=== PATIENT | female | born 2000 | race Caucasian/White ===

== ENCOUNTER 2019-05-11 13:28 | Inpatient (IN) | payer BC ==
[2019-05-11] MEDS ORDERED: Ondansetron 4 MG/2 ML SDV IVPUSH ONE (13:33)
[2019-05-11] MEDS ORDERED: Famotidine 20 MG/2 ML SDV IVPUSH ONE (13:33)
[2019-05-11] MEDS ORDERED: Lactated Ringers 1,000 ML IV ONE (13:33)
[2019-05-11] MEDS ORDERED: Pantoprazole 40 MG Vial IVPUSH ONE (13:33)
--- NOTE | 2019-05-11 13:33 | EDM.PDOC ---
ED HPI GENERAL MEDICAL PROBLEM - General Chief Complaint: Abdominal Pain Stated Complaint: LUQ PAIN Time Seen by Provider: 05/11/19 13:30 Source of Information: Reports: Patient, Significant Other. Denies: Old Records (No [facility] records available) History Limitations: Reports: No Limitations - History of Present Illness INITIAL COMMENTS - FREE TEXT/NARRATIVE: The patient was brought to the emergency room via private automobile by her significant other for evaluation of 9/10 mostly left upper quadrant abdominal pain associated with some nausea today with symptoms starting about 2 days ago. She has not taken any medications for her symptoms to this point. Patient did have a normal bowel movement earlier this morning. Note that the patient did recently have a normal EGD as below, however borderline positive HIDA for a dysfunctional gallbladder with no surgery recommended to this point. She has had some possible fatty food intolerance including patient eating some cheese a couple of days ago. No recent history of other abdominal pain, heartburn, emesis , diarrhea, melena, gross hematochezia, etc.. She denies any gross hematuria, colic, or other UTI symptoms. The patient also denies any recent fever, cough, wheezing, dyspnea, etc.. Onset: Gradual Onset Date: 05/09/19 Onset Time: 22:00 Duration: Day(s): (As above), Getting Worse, Intermittent Location: Reports: Abdomen. Denies: Head, Face, Chest, Back, Pelvis, Upper Extremity, Left, Upper Extremity, Right, Radiates to Quality: Reports: Same as Previous Episode, Sharp Severity: Severe Improves with: Reports: None Worsens with: Reports: None Context: Reports: Other (As above). Denies: Sick Contact, Trauma Associated Symptoms: Reports: Nausea/Vomiting (No emesis). 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 Denies: Allergic Rhinitis, Cataract, Glaucoma, Hard of Hearing, Macular Degeneration, Otitis Media, Retinal Detachment, Sinusitis Other HEENT History: Patient wears glasses. Cardiovascular History: Reports: None, Other (See Below). Denies: Afib, Aneurysm, Arrhythmia, Blood Clots/VTE/DVT, CAD, Heart Murmur, High Cholesterol, Hypertension, Syncope Other Cardiovascular History: Patient does now know her cholesterol status. Respiratory History: Reports: Asthma, Other (See Below). Denies: Bronchitis, Recurrent, COPD, Intubation, Difficult, Intubation, Previous, PE, Pneumonia, Recurrent, Pneumothorax, Sleep Apnea, TB Other Respiratory History: Childhood asthma currently nonproblematic. Gastrointestinal History: Reports: Chronic Diarrhea, Gastritis, GERD, Hiatal Hernia, Other (See Below). Denies: Celiac Disease, Cholelithiasis, Chronic Constipation, Fecal Incontinence, GI Bleed, Hepatitis, Inflammatory Bowel Disease, Irritable Bowel Syndrome, Jaundice, Pancreatitis Other Gastrointestinal History: Small hiatal hernia. Dysfunctional gallbladder by HIDA scan in February 2019 with no known cholelithiasis. Chronic nonspecific abdominal pain since age 8 with possible stress gastritis versus irritable bowel syndrome with chronic diarrhea. 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 Musculoskeletal History: Reports: Arthritis, Back Pain, Chronic, Fracture, Other (See Below). Denies: Amputation, Gout, Neck Pain, Chronic, Osteoarthritis , Osteoporosis, RA, SLE Other Musculoskeletal History: Tibial fibular fracture in infancyside unknown. Neurological History: Reports: Headaches, Chronic, Migraines. Denies: Cerebral Aneurysms, Concussion, Head Trauma, MS, Neuropathy, Peripheral, Parkinson's, Seizure, TIA, Vertigo Psychiatric History: Reports: Addiction, Anxiety, Depression, Psych Hospitalization(s), Suicidal Ideation, Other (See Below). Denies: Abuse, Victim of, ADD, ADHD, PTSD, Suicide Attempt Other Psychiatric History: History of illicit drug use, including methamphetamines between ages 11 and 14, which did require inpatient treatment at age 14 with additional anxiety and depression disorder and suicidal ideation with inpatient treatment as above. Marijuana use between ages 11 and 16. No previous IV drug use. Endocrine/Metabolic History: Reports: None. Denies: Diabetes, Type I, Diabetes , Type II, Diabetes Mellitus, Type 3c, Hypothyroidism, IDDM Hematologic History: Reports: None. Denies: Anemia, Blood Transfusion(s), Iron Deficiency Immunologic History: Reports: None. Denies: AIDS, HIV, SLE Oncologic (Cancer) History: Reports: None. Denies: Basal Cell Carcinoma, Cervix , Hodgkin's Lymphoma, Leukemia, Malignant Melanoma, Non-Hodgkin's Lymphoma, Ovarian, Squamous Cell Carcinoma, Uterine Dermatologic History: Reports: None. Denies: Eczema, Psoriasis - Infectious Disease History Infectious Disease History: Reports: None. Denies: C-Difficile, Chicken Pox, Influenza, Measles, Meningitis, Mononucleosis, MRSA, Multidrug-Resistant Pseudomonas (MDRP), Multidrug-Resistant Gram-Negative, Other, Mumps, Pertussis ( Whooping Cough), Rubella, Scarlet Fever, Shingles, TB, VRE - Past Surgical History Head Surgeries/Procedures: Reports: None HEENT Surgical History: Reports: None. Denies: Adenoidectomy, Eye Surgery, Laser Surgery, LASIK, Myringotomy w Tube(s), Naso-Sinus Surgery, Oral Surgery, Tonsillectomy Cardiovascular Surgical History: Reports: None. Denies: Varicose Respiratory Surgical History: Reports: None. Denies: Thoracentesis GI Surgical History: Reports: EGD, Other (See Below). Denies: Cholecystectomy, Colonoscopy, Hernia, Abdominal, Hernia, Inguinal, Hernia Repair/Other Other GI Surgeries/Procedures: EGD on 01/22/19. Female Surgical History: Reports: None. Denies: Tubal Ligation Endocrine Surgical History: Reports: None Neurological Surgical History: Reports: None. Denies: C-Spine, Discectomy, Laminectomy, Lumbar Spine, Sacral Spine, Spinal Fusion, Thoracic Spine, Vertebroplasty Musculoskeletal Surgical History: Reports: None. Denies: Arthroscopic Procedure , Carpal Tunnel, Ganglion Cyst, Joint Replacement, ORIF, Shoulder Surgery Oncologic Surgical History: Reports: None Dermatological Surgical History: Reports: None - Past Imaging History Past Imaging History: Reports: HIDA Scan (Borderline positive for dysfunctional gallbladder and February 2019 by patient history.) Social & Family History - Family History HEENT: Reports: None. Denies: Cataract, Glaucoma, Macular Degeneration, Retinal Detachment Cardiac: Reports: None. Denies: Afib, Aneurysm, Arrhythmia, Blood Clots/VTE/DVT , CAD, Heart Failure, High Cholesterol, Hypertension, NM, PVD/COD, Syncope Respiratory: Reports: None. Denies: Asthma, COPD, PE, Pneumothorax, Sleep Apnea GI: Reports: None. Denies: Celiac Disease, Cholelithiasis, Colon Polyps, GI bleed, Inflammatory Bowel Disease, Irritable Bowel Syndrome, Pancreatitis, PUD : Reports: None. Denies: Renal Calculus, Renal Disease/Insufficiency OBGYN: Reports: None. Denies: Endometriosis, Fibroids, Recurrent Spontaneous Musculoskeletal: Reports: None. Denies: Arthritis, Gout, RA, SLE Neurological: Reports: None. Denies: Alzheimers Disease, Cerebral Aneurysms, CVA, Dementia, Migraines, MS, Parkinson's, Seizure, TIA Psychiatric: Reports: Anxiety, Depression, Other (See Below). Denies: Abuse, Victim of, ADD, ADHD, Psych Hospitalization(s), PTSD, Suicide Attempt Other Psychiatric Family History: Anxiety depression disorder in parents and maternal/paternal grandparents with maternal grandfather dying in his 60s secondary to alcohol abuse. Endocrine/Metabolic: Reports: None. Denies: Diabetes, Gestational, Diabetes, Type I, Diabetes, type II, Diabetes Mellitus, Type 3c, Hypothyroidism Hematologic: Reports: None. Denies: Anemia Immunologic: Reports: None. Denies: AIDS, HIV, SLE Dermatologic: Denies: Eczema, Psoriasis Oncologic: Reports: None. Denies: Breast, Cervix, Colon, Hodgkin's Lymphoma, Leukemia, Lung, Lymphoma, Non-Hodgkin's Lymphoma, Ovarian, Skin, Uterine - Tobacco Use Smoking Status *Q: Current Every Day Smoker Tobacco Use Within Last Twelve Months: Cigarettes Years of Tobacco use: 8 Packs/Tins Daily: 0.5 Packs/Tins Daily Comment: Started smoking at age 10. Maximum use one pack per day. Used Tobacco, but Quit: No Smoking Cessation Information Provided To Patient: Yes Second Hand Smoke Exposure: Yes Source of Second Hand Smoke Exposure: Significant other Second Hand Smoke Education Provided: Yes - Caffeine Use Caffeine Use: Reports: Energy Drinks (One can per month), Soda (2 sodas per week ). Denies: Coffee, Tea - Alcohol Use Alcohol Use History: Yes Days Per Week of Alcohol Use: 3 Number of Drinks Per Day: 4 Number of Drinks Per Day Comment: Usually wine or mixed drinks. No previous DWIs , problems with alcohol abuse, etc. Total Drinks Per Week: 12 Alcohol Use in Last Twelve Months: No - Recreational Drug Use Recreational Drug Type: Reports: Amphetamines (Speed) (As above), Marijuana/ Hashish (As above), Methamphetamine (As above). 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 ED EXAM, GI/ABD - Physical Exam Exam: See Below Exam Limited By: No Limitations General Appearance: Alert, WD/WN, Mild Distress (Secondary to pain) Eyes: Bilateral: Normal Appearance (No nystagmus. Patient wearing glasses), EOMI (PERRLA) Ears: Normal External Exam, Normal Canal, Hearing Grossly Normal, Normal TMs Nose: Normal Inspection, Normal Mucosa, No Blood Throat/Mouth: Normal Inspection, Normal Lips, Normal Teeth, Normal Gums, Normal Oropharynx, Normal Voice, No Airway Compromise. No: Dysphagia, Perioral Cyanosis Head: Atraumatic, Normocephalic. No: Facial Swelling, Facial Tenderness, Sinus Tenderness Neck: Normal Inspection, Supple, Non-Tender, Full Range of Motion. No: Lymphadenopathy (L), Lymphadenopathy (R), Thyromegaly Respiratory/Chest: No Respiratory Distress, Lungs Clear, Normal Breath Sounds, No Accessory Muscle Use, Chest Non-Tender. No: Pleural Rub, Retractions Cardiovascular: Normal Peripheral Pulses, Regular Rate, Rhythm, No Edema, No Gallop, No JVD, No Murmur, No Rub. No: Gallop/S3, Gallop/S4, Friction Rub GI/Abdominal Exam: Normal Bowel Sounds, No Organomegaly, No Distention, No Abnormal Bruit, No Mass, Pelvis Stable, Tender (Moderate left upper quadrant palpation pain). No: Guarding, Rigid, Rebound, Hernia (Female) Exam: Deferred Rectal (Female) Exam: Deferred Back Exam: Normal Inspection, Full Range of Motion. No: CVA Tenderness (L), CVA Tenderness (R), Muscle Spasm Extremities: Normal Inspection, Normal Range of Motion, Non-Tender, No Pedal Edema, Normal Capillary Refill. No: Katelyn's Sign Neurological: Alert, Oriented, CN II-XII Intact, Normal Cognition, Normal Gait, No Motor/Sensory Deficits Psychiatric: Normal Affect, Normal Mood, Tearful (Secondary to pain) Skin Exam: Warm, Dry, Intact, Normal Color, No Rash, Tattoo(s). No: Diaphoretic , Ecchymosis, Jaundice, Pallor, Petechiae, Wound/Incision Lymphatic: No Adenopathy Course - Vital Signs Last Recorded V/S: Last Vital Signs Temp 36.2 C 05/11/19 13:29 Pulse 71 05/11/19 16:48 Resp 18 05/11/19 16:17 BP 117/78 05/11/19 16:48 Pulse Ox 98 05/11/19 16:17 Vital Signs - 24 hr 05/11/19 05/11/19 05/11/19 13:29 13:44 13:59 Temperature [ 36.2 C Temporal] Pulse, 101 H 100 Peripheral [ Pulse Oximetry] Respiratory 20 19 17 Rate Blood Pressure 140/93 H 121/86 121/87 [Left Upper Arm ] O2 Sat by Pulse 100 100 100 Oximetry 05/11/19 05/11/19 05/11/19 14:15 14:43 14:44 Temperature [ Temporal] Pulse, 72 86 71 Peripheral [ Pulse Oximetry] Respiratory 16 17 18 Rate Blood Pressure 94/62 123/76 125/73 [Left Upper Arm ] O2 Sat by Pulse 99 99 99 Oximetry 05/11/19 05/11/19 05/11/19 14:59 15:14 15:29 Temperature [ Temporal] Pulse, 61 75 Peripheral [ Pulse Oximetry] Respiratory 16 16 16 Rate Blood Pressure 135/82 113/82 118/74 [Left Upper Arm ] O2 Sat by Pulse 99 99 99 Oximetry 05/11/19 05/11/19 05/11/19 15:57 16:00 16:17 Temperature [ Temporal] Pulse, 89 71 Peripheral [ Pulse Oximetry] Respiratory 16 17 18 Rate Blood Pressure 121/68 122/74 124/93 H [Left Upper Arm ] O2 Sat by Pulse 99 99 98 Oximetry 05/11/19 05/11/19 05/11/19 16:29 16:48 16:59 Temperature [ Temporal] Pulse, 74 71 71 Peripheral [ Pulse Oximetry] Respiratory Rate Blood Pressure 114/79 117/78 128/69 [Left Upper Arm ] O2 Sat by Pulse 98 Oximetry 05/11/19 05/11/19 17:14 17:29 Temperature [ 36.9 C Temporal] Pulse, 80 92 Peripheral [ Pulse Oximetry] Respiratory Rate Blood Pressure 123/81 133/87 [Left Upper Arm ] O2 Sat by Pulse 99 98 Oximetry - Orders/Labs/Meds Orders: Active Orders 24 hr Category Date Time Status Peripheral IV Care [RC] . DIRECTED Care 05/11/19 13:33 Active Nothing Per Oral Diet [DIET] Diet 05/11/19 Breakfast Active Abdomen Pelvis w Cont [CT] Stat Exams 05/11/19 16:05 Taken Abdomen Series w Chest 1V [CR] Stat Exams 05/11/19 13:33 Taken CULTURE URINE [RM] Routine Lab 05/11/19 16:41 Ordered Sodium Chloride 0.9% [Saline Flush] Med 05/11/19 13:33 Active 10 ml FLUSH ASDIRECTED PRN Obtain Past Medical Record [OM.PC] Urgent Oth 05/11/19 13:33 Active Peripheral IV Insertion Adult [OM.PC] Stat Oth 05/11/19 13:33 Ordered Resuscitation Status Stat Resus Stat 05/11/19 13:33 Ordered Medication Orders Sodium Chloride (Saline Flush) 10 ml FLUSH ASDIRECTED PRN PRN Reason: Keep Vein Open Last Admin: 05/11/19 17:11 Dose: 10 ml Admin: 05/11/19 16:10 Dose: 10 ml Admin: 05/11/19 14:02 Dose: 10 ml Labs: Laboratory Tests 05/11/19 05/11/19 05/11/19 Range/Units 13:45 13:45 13:45 WBC 13.0 H (4.0-10.2) K/uL RBC 4.80 (3.77-5.09) M/uL Hgb 14.8 (11.7-15.5) g/dL Hct 42.6 (34.0-46.0) % MCV 88.8 (84.0-98.0) fL MCH 30.8 (28.2-33.3) pg MCHC 34.7 (31.7-36.0) g/dL RDW 12.9 (11.2-14.1) % Plt Count 354 H (150-350) K/uL Neut % (Auto) 63.7 (45.0-80.0) % Lymph % (Auto) 26.1 (10.0-50.0) % Dixie % (Auto) 8.2 (2.0-14.0) % Eos % (Auto) 1.8 (0.0-5.0) % Baso % (Auto) 0.2 (0.0-2.0) % Neut # (Auto) 8.28 H (1.40-7.00) K/uL Lymph # (Auto) 3.40 (0.50-3.50) K/uL Dixie # (Auto) 1.07 H (0.00-1.00) K/uL Eos # (Auto) 0.24 (0.00-0.50) K/uL Baso # (Auto) 0.03 (0.00-0.20) K/uL PT 10.2 (9.5-12.0) SEC INR 0.9 APTT 28.7 (21.0-31.3) SEC Sodium 139 (136-145) mmol/L Potassium 3.8 (3.5-5.1) mmol/L Chloride 102 (98-107) mmol/L Carbon Dioxide 24.1 (21.0-32.0) mmol/L BUN 12 (7-18) mg/dL Creatinine 0.83 (0.51-1.17) mg/dL Est Cr Clr Drug Dosing TNP Estimated GFR (MDRD) > 60 mL/min Glucose 86 (74-106) mg/dL Lactic Acid (0.4-2.0) mmol/L Uric Acid 4.8 (2.6-7.2) mg/dL Calcium 9.8 (8.5-10.1) mg/dL Magnesium 1.9 (1.8-2.4) mg/dL Total Bilirubin 0.5 (0.2-1.0) mg/dL AST 23 (15-37) U/L ALT 36 (12-78) U/L Alkaline Phosphatase 62 (46-116) IU/L Total Protein 8.5 H (6.4-8.2) g/dL Albumin 4.2 (3.4-5.0) g/dL Amylase 58 (25-115) U/L Lipase 72 L (73-393) U/L HCG, Qual (NEGATIVE) Specimen Type Urine Color Urine Appearance Urine pH (5.0-9.0) Ur Specific [place] (1.005-1.030) Urine Protein (NEGATIVE) mg/dL Urine Glucose (UA) (NEGATIVE) mg/dL Urine Ketones (NEGATIVE) mg/dL Urine Occult Blood (NEGATIVE) Urine Nitrite (NEGATIVE) Urine Bilirubin (NEGATIVE) Urine Urobilinogen (0.2-1.0) E.U./dL Ur Leukocyte Esterase (NEGATIVE) Urine RBC /HPF Urine WBC /HPF Ur Epithelial Cells /LPF Urine Mucus (NEGATIVE) /LPF 05/11/19 05/11/19 05/11/19 Range/Units 13:45 13:45 16:41 WBC (4.0-10.2) K/uL RBC (3.77-5.09) M/uL Hgb (11.7-15.5) g/dL Hct (34.0-46.0) % MCV (84.0-98.0) fL MCH (28.2-33.3) pg MCHC (31.7-36.0) g/dL RDW (11.2-14.1) % Plt Count (150-350) K/uL Neut % (Auto) (45.0-80.0) % Lymph % (Auto) (10.0-50.0) % Dixie % (Auto) (2.0-14.0) % Eos % (Auto) (0.0-5.0) % Baso % (Auto) (0.0-2.0) % Neut # (Auto) (1.40-7.00) K/uL Lymph # (Auto) (0.50-3.50) K/uL Dixie # (Auto) (0.00-1.00) K/uL Eos # (Auto) (0.00-0.50) K/uL Baso # (Auto) (0.00-0.20) K/uL PT (9.5-12.0) SEC INR APTT (21.0-31.3) SEC Sodium (136-145) mmol/L Potassium (3.5-5.1) mmol/L Chloride (98-107) mmol/L Carbon Dioxide (21.0-32.0) mmol/L BUN (7-18) mg/dL Creatinine (0.51-1.17) mg/dL Est Cr Clr Drug Dosing Estimated GFR (MDRD) mL/min Glucose (74-106) mg/dL Lactic Acid 2.3 H (0.4-2.0) mmol/L Uric Acid (2.6-7.2) mg/dL Calcium (8.5-10.1) mg/dL Magnesium (1.8-2.4) mg/dL Total Bilirubin (0.2-1.0) mg/dL AST (15-37) U/L ALT (12-78) U/L Alkaline Phosphatase (46-116) IU/L Total Protein (6.4-8.2) g/dL Albumin (3.4-5.0) g/dL Amylase (25-115) U/L Lipase (73-393) U/L HCG, Qual Negative (NEGATIVE) Specimen Type Urincc Urine Color Yellow Urine Appearance Clear Urine pH 7.0 (5.0-9.0) Ur Specific [place] 1.020 (1.005-1.030) Urine Protein Negative (NEGATIVE) mg/dL Urine Glucose (UA) Negative (NEGATIVE) mg/dL Urine Ketones 15 H (NEGATIVE) mg/dL Urine Occult Blood Small H (NEGATIVE) Urine Nitrite Negative (NEGATIVE) Urine Bilirubin Negative (NEGATIVE) Urine Urobilinogen 0.2 (0.2-1.0) E.U./dL Ur Leukocyte Esterase Negative (NEGATIVE) Urine RBC 0-5 /HPF Urine WBC 0-5 /HPF Ur Epithelial Cells Rare /LPF Urine Mucus Rare H (NEGATIVE) /LPF Urine specimen set up for culture and sensitivity. Meds: Medications Generic Name Dose Route Start Last Admin Trade Name Freq PRN Reason Stop Dose Admin Sodium Chloride 10 ml 05/11/19 13:33 05/11/19 17:11 Saline Flush FLUSH 10 ml ASDIRECTED PRN Administration Keep Vein Open Discontinued Medications Generic Name Dose Route Start Last Admin Trade Name Freq PRN Reason Stop Dose Admin Al Hydroxide/Mg Hydroxide 30 ml 05/11/19 15:30 05/11/19 15:39 Gi Cocktail PO 05/11/19 15:31 30 ml ONETIME ONE Administration Famotidine 40 mg 05/11/19 13:33 05/11/19 13:45 Pepcid IVPUSH 05/11/19 13:34 40 mg ONETIME ONE Administration Fentanyl 100 mcg 05/11/19 16:05 05/11/19 16:09 Sublimaze IVPUSH 05/11/19 16:06 50 mcg ONETIME ONE Administration Lactated Ringer's 1,000 mls @ 999 mls/hr 05/11/19 13:33 05/11/19 13:59 Ringers, Lactated IV 05/11/19 14:33 999 mls/hr .BOLUS ONE Administration Ciprofloxacin/Dextrose 400 mg/ 200 mls @ 200 mls/hr 05/11/19 14:44 05/11/19 15:05 Premix IV 05/11/19 15:43 200 mls/hr ONETIME ONE Administration Iopamidol 100 ml 05/11/19 16:16 05/11/19 16:37 Isovue-300 (61%) IVPUSH 05/11/19 16:17 100 ml ONETIME ONE Administration Meperidine HCl 50 mg 05/11/19 13:38 05/11/19 13:48 Demerol IM 05/11/19 13:39 50 mg ONETIME ONE Administration Ondansetron HCl 4 mg 05/11/19 13:33 05/11/19 13:45 Zofran IVPUSH 05/11/19 13:34 4 mg ONETIME ONE Administration Pantoprazole Sodium 40 mg 05/11/19 13:33 05/11/19 13:46 Protonix Iv IVPUSH 05/11/19 13:34 40 mg ONETIME ONE Administration - Radiology Interpretation Free Text/Narrative:: Acute abdominal x-rays shows some moderate pulmonary obstructive disease with no cardiomegaly, CHF, pulmonary infiltrates, pneumothorax, free air, or significant ileus/obstruction. Occasional nonspecific fluid levels and gaseous pattern with right pelvic calcification noted. Official radiology report received during emergency room evaluation with question of enterolith versus fecalith versus ureterolith. Telephone consultation at 17:25 hours with the radiology department at [facility]. Preliminary verbal report of CT scan of the abdomen and pelvis with IV contrast showing some inflammation of the colon in the cecum and ascending colon with secondary to mild mesenteric lymphadenopathy. Gallbladder and appendix appear normal. CT Results Date: 05/11/19 CT Results Time: 17:25 Departure - Departure Time of Disposition: 17:40 Disposition: Admitted As Inpatient 64 Condition: Good Clinical Impression: Tobacco abuse counseling, Mixed anxiety depressive disorder, Lactic acid blood increased, Colitis Abdominal pain Qualifiers: Abdominal location: left upper quadrant Qualified Code(s): R10.12 - Left upper quadrant pain Asthma Qualifiers: Asthma severity: mild Asthma persistence: intermittent Asthma complication type : uncomplicated Qualified Code(s): J45.20 - Mild intermittent asthma, uncomplicated - Discharge Information *PRESCRIPTION DRUG MONITORING PROGRAM REVIEWED*: Not Applicable *COPY OF PRESCRIPTION DRUG MONITORING REPORT IN PATIENT TRUNG: Not Applicable Referrals: PCP,Not In Area [Ordering Only Provider] - Forms: ED Department Discharge, ED Return to Work/School Form - Problem List & Annotations (1) Abdominal pain SNOMED Code(s): 35840504 Code(s): R10.9 - UNSPECIFIED ABDOMINAL PAIN Status: Acute Priority: High Current Visit: Yes Onset Date: ~05/09/19 Annotation/Comment:: Initially planned to send patient home with aggressive outpatient treatment, including Cipro and Flagyl with suspicions of dysfunctional gallbladder with mild WBC elevation. Secondary to refractory and recurrent abdominal pain requiring aggressive pain management as above a CT scan of the abdomen and pelvis was ordered with results as above indicating some beginning colitis. No family history of ulcerative colitis, Crohn's disease, etc., although the patient has been having chronic intermittent problems since age 8. She will likely need further surgical outpatient evaluation, including possible colonoscopy and/or laparoscopic cholecystectomy once her current colitis has resolved. Note history of borderline dysfunctional gallbladder and recent EGD in February 2019 with records released to this facility today. Surgical consultation on an outpatient basis and/or earlier, depending on her clinical course. Note aggressive initial treatment in the emergency room, including high-dose IV Protonix, high-dose IV Pepcid, and initial IV Cipro dose. Qualifiers: Abdominal location: left upper quadrant Qualified Code(s): R10.12 - Left upper quadrant pain (2) Colitis SNOMED Code(s): 12180066 Code(s): K52.9 - NONINFECTIVE GASTROENTERITIS AND COLITIS, UNSPECIFIED Status: Acute Priority: High Current Visit: Yes Onset Date: 05/11/19 Annotation/Comment:: As above (3) Tobacco abuse counseling SNOMED Code(s): 678520109, 614973317, 834969461 Code(s): Z71.6 - TOBACCO ABUSE COUNSELING Status: Chronic Priority: Medium Current Visit: Yes Annotation/Comment:: Tobacco cessation strongly encouraged for the patient and her boyfriend with tobacco cessation information to be provided at discharge. (4) Mixed anxiety depressive disorder SNOMED Code(s): 886623547 Code(s): F41.8 - OTHER SPECIFIED ANXIETY DISORDERS Status: Chronic Priority: Medium Current Visit: Yes Annotation/Comment:: Stable by patient history (5) Lactic acid blood increased SNOMED Code(s): 2316192 Code(s): R79.89 - OTHER SPECIFIED ABNORMAL FINDINGS OF BLOOD CHEMISTRY Status: Acute Priority: High Current Visit: Yes Onset Date: 05/11/19 Annotation/Comment:: Mild lactic acid elevation with IV lactated Ringer's given in the emergency room. Continue IV fluids for now. Lactic acid level to be repeated later this evening and in the a.m.. IV antibiotic therapy as above. No evidence of sepsis, etc. (6) Asthma SNOMED Code(s): 848329195 Code(s): J45.909 - UNSPECIFIED ASTHMA, UNCOMPLICATED Status: Chronic Priority: Medium Current Visit: Yes Annotation/Comment:: No recent bronchitic type symptoms with medical therapy not required for several years. Qualifiers: Asthma severity: mild Asthma persistence: intermittent Asthma complication type: uncomplicated Qualified Code(s): J45.20 - Mild intermittent asthma, uncomplicated - Problem List Review Problem List Initiated/Reviewed/Updated: Yes - My Orders Last 24 Hours: My Active Orders 05/11/19 13:33 Peripheral IV Care [RC] . DIRECTED Abdomen Series w Chest 1V [CR] Stat Sodium Chloride 0.9% [Saline Flush] 10 ml FLUSH ASDIRECTED PRN Obtain Past Medical Record [OM.PC] Urgent Peripheral IV Insertion Adult [OM.PC] Stat Resuscitation Status Stat 05/11/19 16:05 Abdomen Pelvis w Cont [CT] Stat 05/11/19 16:41 CULTURE URINE [RM] Routine 05/11/19 Breakfast Nothing Per Oral Diet [DIET] - Assessment/Plan Admission H&P: Please use this note as an admission H&P Last 24 Hours: My Active Orders 05/11/19 13:33 Peripheral IV Care [RC] . DIRECTED Abdomen Series w Chest 1V [CR] Stat Sodium Chloride 0.9% [Saline Flush] 10 ml FLUSH ASDIRECTED PRN Obtain Past Medical Record [OM.PC] Urgent Peripheral IV Insertion Adult [OM.PC] Stat Resuscitation Status Stat 05/11/19 16:05 Abdomen Pelvis w Cont [CT] Stat 05/11/19 16:41 CULTURE URINE [RM] Routine 05/11/19 Breakfast Nothing Per Oral Diet [DIET] Assessment:: As above Plan: As above. Extensive precautions were given to the patient, who is in agreement with the treatment plan. The patient will require about 3-4 days of inpatient/ acute care secondary to multiple health problems as above.
[2019-05-11] MEDS ORDERED: Meperidine PF 50 MG/ML Amp IM ONE (13:38)
[2019-05-11] MEDS: Sodium Chloride 0.9% 10 ML Syringe FLUSH PRN ×3 (14:02→17:11)
[2019-05-11 14:05] LABS: CHLORIDE,CL 102 mmol/L (98-107); SODIUM,NA 139 mmol/L (136-145)
[2019-05-11] MEDS ORDERED: Ciprofloxacin in D5W 400 MG in Premix Bag 1 BAG IV ONE ×2 (14:44)
[2019-05-11] MEDS ORDERED: GI Cocktail Oral Solution 30 ML PO ONE (15:30)
[2019-05-11] MEDS ORDERED: fentaNYL 100 MCG/2 ML SDV IVPUSH ONE (16:05)
[2019-05-11] MEDS ORDERED: Iopamidol 612 MG/ML 100 ML Bottle IVPUSH ONE (16:16)
[2019-05-11] MEDS ORDERED: Ondansetron 4 MG/2 ML SDV IVPUSH PRN (17:55)
[2019-05-11] MEDS ORDERED: Acetaminophen 325 MG Tab PO PRN (17:55)
[2019-05-11] MEDS: metroNIDAZOLE/Normal Saline 500 MG in Premix Bag 1 BAG IV SCH (18:24)
[2019-05-11] MEDS: Nicotine 21 MG/24 Hr Patch TRDERM SCH (18:24)
[2019-05-11] MEDS ORDERED: traMADol 50 MG Tab PO PRN (18:47)
[2019-05-11] MEDS ORDERED: HYDROmorphone 1 MG/ML Syringe IVPUSH PRN (18:49)
[2019-05-11] MEDS: LORazepam 1 MG Tab PO PRN (19:49)
[2019-05-11] MEDS: Sodium Chloride 0.9% 10 ML Syringe FLUSH SCH (19:51)
[2019-05-11] MEDS: Lactated Ringers 1,000 ML IV SCH (19:53)
[2019-05-11] MEDS ORDERED: Temazepam 15 MG Cap PO PRN (20:00)
[2019-05-12] MEDS: Sodium Chloride 0.9% 10 ML Syringe FLUSH PRN ×7 (01:54→17:11)
[2019-05-12] MEDS: Pantoprazole 40 MG Vial IVPUSH SCH ×2 (01:56→13:08)
[2019-05-12] MEDS: metroNIDAZOLE/Normal Saline 500 MG in Premix Bag 1 BAG IV SCH ×3 (01:56→17:11)
[2019-05-12] MEDS ORDERED: Pantoprazole 40 MG Vial IVPUSH SCH (07:00)
[2019-05-12] MEDS: Sodium Chloride 0.9% 10 ML Syringe FLUSH SCH ×2 (07:23→19:34)
[2019-05-12] MEDS: Lactated Ringers 1,000 ML IV SCH (07:24)
[2019-05-12 08:18] LABS: CHLORIDE,CL 102 mmol/L (98-107); SODIUM,NA 137 mmol/L (136-145)
[2019-05-12] MEDS: LORazepam 1 MG Tab PO PRN ×3 (08:21→19:37)
[2019-05-12] MEDS ORDERED: methylPREDNISolone Sodium Succinate 125 MG/2 ML SDV IVPUSH SCH (10:15)
--- NOTE | 2019-05-12 10:20 | PCM.PN ---
- General Info Date of Service: 05/12/19 Admission Dx/Problem (Free Text): Colitis Functional Status: Reports: Pain Controlled, Tolerating Diet, Ambulating, Urinating, New Symptoms (Emesis as below). Denies: Incentive Spirometry Pain Score: 2 - Review of Systems General: Reports: Fatigue, Chills, Appetite (Somewhat decreased). Denies: Fever (Afebrile this morning with improved fever since admission), Weakness, Malaise, Night Sweats HEENT: Reports: Post Nasal Drip. Denies: Ear Pain, Eye Pain, Headaches, Sinus Congestion, Sore Throat, Rhinitis, Visual Changes Pulmonary: Reports: No Symptoms, Cough. Denies: Shortness of Breath, Pleuritic Chest Pain, Sputum, Hemoptysis, Wheezing Cardiovascular: Reports: No Symptoms. Denies: Chest Pain, Palpitations, Dyspnea on Exertion, Orthopnea, PND, Edema, Lightheadedness Gastrointestinal: Reports: Abdominal Pain (Nonspecific generalized). Denies: Constipation, Decreased Appetite, Diarrhea, Difficulty Swallowing, Flatus, Hematochezia, Melena, Nausea, Vomiting Genitourinary: Reports: No Symptoms. Denies: Dysuria, Frequency, Burning, Pain , Urgency, Incontinence, Hematuria, Retention, Flank Pain Musculoskeletal: Reports: No Symptoms. Denies: Neck Pain, Shoulder Pain, Arm Pain, Back Pain, Leg Pain Skin: Reports: No Symptoms. Denies: Pallor, Diaphoresis, Pruritis, Rash Neurological: Reports: No Symptoms. Denies: Confusion, Dizziness, Headache, Numbness, Paresthesia, Tingling, Weakness Psychiatric: Reports: Depression (Borderline), Anxiety (Mild to moderate). Denies: Agitation, Cravings, Hallucinations, Suicidal Ideation, Homicidal Ideation - Patient Data Vitals - Most Recent: Last Vital Signs Temp 36.6 C 05/12/19 07:52 Pulse 81 05/12/19 07:52 Resp 12 05/12/19 07:52 BP 129/83 05/12/19 07:52 Pulse Ox 100 05/12/19 07:52 Vital Signs - 24 hr 05/11/19 05/11/19 05/11/19 13:29 13:44 13:59 Temperature [ 36.2 C Temporal] Pulse, 101 H 100 Peripheral [ Pulse Oximetry] Respiratory 20 19 17 Rate Blood Pressure 140/93 H 121/86 121/87 [Left Upper Arm ] O2 Sat by Pulse 100 100 100 Oximetry 05/11/19 05/11/19 05/11/19 14:15 14:43 14:44 Temperature [ Temporal] Pulse, 72 86 71 Peripheral [ Pulse Oximetry] Respiratory 16 17 18 Rate Blood Pressure 94/62 123/76 125/73 [Left Upper Arm ] O2 Sat by Pulse 99 99 99 Oximetry 05/11/19 05/11/19 05/11/19 14:59 15:14 15:29 Temperature [ Temporal] Pulse, 61 75 Peripheral [ Pulse Oximetry] Respiratory 16 16 16 Rate Blood Pressure 135/82 113/82 118/74 [Left Upper Arm ] O2 Sat by Pulse 99 99 99 Oximetry 05/11/19 05/11/19 05/11/19 15:57 16:00 16:17 Temperature [ Temporal] Pulse, 89 71 Peripheral [ Pulse Oximetry] Respiratory 16 17 18 Rate Blood Pressure 121/68 122/74 124/93 H [Left Upper Arm ] O2 Sat by Pulse 99 99 98 Oximetry 05/11/19 05/11/19 05/11/19 16:29 16:48 16:59 Temperature [ Temporal] Pulse, 74 71 71 Peripheral [ Pulse Oximetry] Respiratory Rate Blood Pressure 114/79 117/78 128/69 [Left Upper Arm ] O2 Sat by Pulse 98 Oximetry 05/11/19 05/11/19 05/11/19 17:14 17:29 17:56 Temperature [ 36.9 C Temporal] Pulse, 80 92 Peripheral [ Pulse Oximetry] Respiratory Rate Blood Pressure 123/81 133/87 [Left Upper Arm ] O2 Sat by Pulse 99 98 97 Oximetry 05/11/19 05/11/19 05/12/19 20:00 23:35 04:00 Temperature [ 37.3 C 37.2 C 37.2 C Temporal] Pulse, 71 87 82 Peripheral [ Pulse Oximetry] Respiratory 17 16 16 Rate Blood Pressure 131/78 132/89 128/79 [Left Upper Arm ] O2 Sat by Pulse 99 100 100 Oximetry 05/12/19 07:52 Temperature [ 36.6 C Temporal] Pulse, 81 Peripheral [ Pulse Oximetry] Respiratory 12 Rate Blood Pressure 129/83 [Left Upper Arm ] O2 Sat by Pulse 100 Oximetry Weight - Most Recent: 60.963 kg I&O - Last 24 Hours: Intake & Output 05/11/19 05/12/19 05/12/19 22:59 06:59 14:59 Intake Total 1299 983 100 Output Total 200 Balance 1299 783 100 Imaging Impressions - Last 24 Hours: Acute abdominal x-rays shows moderate pulmonary obstructive disease with no pulmonary infiltrates, pneumothorax, cardiomegaly, ileus, obstruction, free air , etc.. Mild to moderate stool with nonspecific bowel gaseous pattern and only very occasional fluid level noted. Lab Results Last 24 Hours: Laboratory Results - last 24 hr 05/11/19 05/11/19 05/11/19 Range/Units 09:00 13:45 13:45 WBC 13.0 H (4.0-10.2) K/uL RBC 4.80 (3.77-5.09) M/uL Hgb 14.8 (11.7-15.5) g/dL Hct 42.6 (34.0-46.0) % MCV 88.8 (84.0-98.0) fL MCH 30.8 (28.2-33.3) pg MCHC 34.7 (31.7-36.0) g/dL RDW 12.9 (11.2-14.1) % Plt Count 354 H (150-350) K/uL Neut % (Auto) 63.7 (45.0-80.0) % Lymph % (Auto) 26.1 (10.0-50.0) % Nobles % (Auto) 8.2 (2.0-14.0) % Eos % (Auto) 1.8 (0.0-5.0) % Baso % (Auto) 0.2 (0.0-2.0) % Neut # (Auto) 8.28 H (1.40-7.00) K/uL Lymph # (Auto) 3.40 (0.50-3.50) K/uL Nobles # (Auto) 1.07 H (0.00-1.00) K/uL Eos # (Auto) 0.24 (0.00-0.50) K/uL Baso # (Auto) 0.03 (0.00-0.20) K/uL PT 10.2 (9.5-12.0) SEC INR 0.9 APTT 28.7 (21.0-31.3) SEC Sodium (136-145) mmol/L Potassium (3.5-5.1) mmol/L Chloride (98-107) mmol/L Carbon Dioxide (21.0-32.0) mmol/L BUN (7-18) mg/dL Creatinine (0.51-1.17) mg/dL Est Cr Clr Drug Dosing Estimated GFR (MDRD) mL/min Glucose (74-106) mg/dL Lactic Acid 0.9 (0.4-2.0) mmol/L Uric Acid (2.6-7.2) mg/dL Calcium (8.5-10.1) mg/dL Magnesium (1.8-2.4) mg/dL Total Bilirubin (0.2-1.0) mg/dL AST (15-37) U/L ALT (12-78) U/L Alkaline Phosphatase (46-116) IU/L Total Protein (6.4-8.2) g/dL Albumin (3.4-5.0) g/dL Amylase (25-115) U/L Lipase (73-393) U/L HCG, Qual (NEGATIVE) Specimen Type Urine Color Urine Appearance Urine pH (5.0-9.0) Ur Specific [place] (1.005-1.030) Urine Protein (NEGATIVE) mg/dL Urine Glucose (UA) (NEGATIVE) mg/dL Urine Ketones (NEGATIVE) mg/dL Urine Occult Blood (NEGATIVE) Urine Nitrite (NEGATIVE) Urine Bilirubin (NEGATIVE) Urine Urobilinogen (0.2-1.0) E.U./dL Ur Leukocyte Esterase (NEGATIVE) Urine RBC /HPF Urine WBC /HPF Ur Epithelial Cells /LPF Urine Mucus (NEGATIVE) /LPF 05/11/19 05/11/19 05/11/19 Range/Units 13:45 13:45 13:45 WBC (4.0-10.2) K/uL RBC (3.77-5.09) M/uL Hgb (11.7-15.5) g/dL Hct (34.0-46.0) % MCV (84.0-98.0) fL MCH (28.2-33.3) pg MCHC (31.7-36.0) g/dL RDW (11.2-14.1) % Plt Count (150-350) K/uL Neut % (Auto) (45.0-80.0) % Lymph % (Auto) (10.0-50.0) % Nobles % (Auto) (2.0-14.0) % Eos % (Auto) (0.0-5.0) % Baso % (Auto) (0.0-2.0) % Neut # (Auto) (1.40-7.00) K/uL Lymph # (Auto) (0.50-3.50) K/uL Nobles # (Auto) (0.00-1.00) K/uL Eos # (Auto) (0.00-0.50) K/uL Baso # (Auto) (0.00-0.20) K/uL PT (9.5-12.0) SEC INR APTT (21.0-31.3) SEC Sodium 139 (136-145) mmol/L Potassium 3.8 (3.5-5.1) mmol/L Chloride 102 (98-107) mmol/L Carbon Dioxide 24.1 (21.0-32.0) mmol/L BUN 12 (7-18) mg/dL Creatinine 0.83 (0.51-1.17) mg/dL Est Cr Clr Drug Dosing TNP Estimated GFR (MDRD) > 60 mL/min Glucose 86 (74-106) mg/dL Lactic Acid 2.3 H (0.4-2.0) mmol/L Uric Acid 4.8 (2.6-7.2) mg/dL Calcium 9.8 (8.5-10.1) mg/dL Magnesium 1.9 (1.8-2.4) mg/dL Total Bilirubin 0.5 (0.2-1.0) mg/dL AST 23 (15-37) U/L ALT 36 (12-78) U/L Alkaline Phosphatase 62 (46-116) IU/L Total Protein 8.5 H (6.4-8.2) g/dL Albumin 4.2 (3.4-5.0) g/dL Amylase 58 (25-115) U/L Lipase 72 L (73-393) U/L HCG, Qual Negative (NEGATIVE) Specimen Type Urine Color Urine Appearance Urine pH (5.0-9.0) Ur Specific [place] (1.005-1.030) Urine Protein (NEGATIVE) mg/dL Urine Glucose (UA) (NEGATIVE) mg/dL Urine Ketones (NEGATIVE) mg/dL Urine Occult Blood (NEGATIVE) Urine Nitrite (NEGATIVE) Urine Bilirubin (NEGATIVE) Urine Urobilinogen (0.2-1.0) E.U./dL Ur Leukocyte Esterase (NEGATIVE) Urine RBC /HPF Urine WBC /HPF Ur Epithelial Cells /LPF Urine Mucus (NEGATIVE) /LPF 05/11/19 05/12/19 05/12/19 Range/Units 16:41 07:08 07:08 WBC 9.4 (4.0-10.2) K/uL RBC 4.15 (3.77-5.09) M/uL Hgb 12.7 D (11.7-15.5) g/dL Hct 37.2 (34.0-46.0) % MCV 89.6 (84.0-98.0) fL MCH 30.6 (28.2-33.3) pg MCHC 34.1 (31.7-36.0) g/dL RDW 12.7 (11.2-14.1) % Plt Count 261 D (150-350) K/uL Neut % (Auto) 67.8 (45.0-80.0) % Lymph % (Auto) 21.4 (10.0-50.0) % Nobles % (Auto) 8.7 (2.0-14.0) % Eos % (Auto) 2.0 (0.0-5.0) % Baso % (Auto) 0.1 (0.0-2.0) % Neut # (Auto) 6.39 (1.40-7.00) K/uL Lymph # (Auto) 2.02 (0.50-3.50) K/uL Nobles # (Auto) 0.82 (0.00-1.00) K/uL Eos # (Auto) 0.19 (0.00-0.50) K/uL Baso # (Auto) 0.01 (0.00-0.20) K/uL PT (9.5-12.0) SEC INR APTT (21.0-31.3) SEC Sodium 137 (136-145) mmol/L Potassium 3.6 (3.5-5.1) mmol/L Chloride 102 (98-107) mmol/L Carbon Dioxide 25.5 (21.0-32.0) mmol/L BUN 9 (7-18) mg/dL Creatinine 0.78 (0.51-1.17) mg/dL Est Cr Clr Drug Dosing 95.17 Estimated GFR (MDRD) > 60 mL/min Glucose 91 (74-106) mg/dL Lactic Acid (0.4-2.0) mmol/L Uric Acid (2.6-7.2) mg/dL Calcium 8.4 L (8.5-10.1) mg/dL Magnesium (1.8-2.4) mg/dL Total Bilirubin 0.5 (0.2-1.0) mg/dL AST 23 (15-37) U/L ALT 33 (12-78) U/L Alkaline Phosphatase 52 (46-116) IU/L Total Protein 6.7 (6.4-8.2) g/dL Albumin 3.3 L (3.4-5.0) g/dL Amylase 49 (25-115) U/L Lipase 66 L (73-393) U/L HCG, Qual (NEGATIVE) Specimen Type Urincc Urine Color Yellow Urine Appearance Clear Urine pH 7.0 (5.0-9.0) Ur Specific [place] 1.020 (1.005-1.030) Urine Protein Negative (NEGATIVE) mg/dL Urine Glucose (UA) Negative (NEGATIVE) mg/dL Urine Ketones 15 H (NEGATIVE) mg/dL Urine Occult Blood Small H (NEGATIVE) Urine Nitrite Negative (NEGATIVE) Urine Bilirubin Negative (NEGATIVE) Urine Urobilinogen 0.2 (0.2-1.0) E.U./dL Ur Leukocyte Esterase Negative (NEGATIVE) Urine RBC 0-5 /HPF Urine WBC 0-5 /HPF Ur Epithelial Cells Rare /LPF Urine Mucus Rare H (NEGATIVE) /LPF 05/12/19 Range/Units 07:08 WBC (4.0-10.2) K/uL RBC (3.77-5.09) M/uL Hgb (11.7-15.5) g/dL Hct (34.0-46.0) % MCV (84.0-98.0) fL MCH (28.2-33.3) pg MCHC (31.7-36.0) g/dL RDW (11.2-14.1) % Plt Count (150-350) K/uL Neut % (Auto) (45.0-80.0) % Lymph % (Auto) (10.0-50.0) % Nobles % (Auto) (2.0-14.0) % Eos % (Auto) (0.0-5.0) % Baso % (Auto) (0.0-2.0) % Neut # (Auto) (1.40-7.00) K/uL Lymph # (Auto) (0.50-3.50) K/uL [place]les # (Auto) (0.00-1.00) K/uL Eos # (Auto) (0.00-0.50) K/uL Baso # (Auto) (0.00-0.20) K/uL PT (9.5-12.0) SEC INR APTT (21.0-31.3) SEC Sodium (136-145) mmol/L Potassium (3.5-5.1) mmol/L Chloride (98-107) mmol/L Carbon Dioxide (21.0-32.0) mmol/L BUN (7-18) mg/dL Creatinine (0.51-1.17) mg/dL Est Cr Clr Drug Dosing Estimated GFR (MDRD) mL/min Glucose (74-106) mg/dL Lactic Acid 1.3 (0.4-2.0) mmol/L Uric Acid (2.6-7.2) mg/dL Calcium (8.5-10.1) mg/dL Magnesium (1.8-2.4) mg/dL Total Bilirubin (0.2-1.0) mg/dL AST (15-37) U/L ALT (12-78) U/L Alkaline Phosphatase (46-116) IU/L Total Protein (6.4-8.2) g/dL Albumin (3.4-5.0) g/dL Amylase (25-115) U/L Lipase (73-393) U/L HCG, Qual (NEGATIVE) Specimen Type Urine Color Urine Appearance Urine pH (5.0-9.0) Ur Specific [place] (1.005-1.030) Urine Protein (NEGATIVE) mg/dL Urine Glucose (UA) (NEGATIVE) mg/dL Urine Ketones (NEGATIVE) mg/dL Urine Occult Blood (NEGATIVE) Urine Nitrite (NEGATIVE) Urine Bilirubin (NEGATIVE) Urine Urobilinogen (0.2-1.0) E.U./dL Ur Leukocyte Esterase (NEGATIVE) Urine RBC /HPF Urine WBC /HPF Ur Epithelial Cells /LPF Urine Mucus (NEGATIVE) /LPF Nicholas Results Last 24 Hours: Urine culture and sensitivity pending Med Orders - Current: Current Medications Acetaminophen (Tylenol) 650 mg PO Q4H PRN PRN Reason: Pain Famotidine (Pepcid) 20 mg IVPUSH Q12H [facility] Hydromorphone HCl (Dilaudid) 1 mg IVPUSH Q4H PRN PRN Reason: Pain (severe 7-10) Last Admin: 05/12/19 07:23 Dose: 1 mg Metronidazole 500 mg/ Premix 100 mls @ 100 mls/hr IV Q8H [facility] Last Admin: 05/12/19 09:57 Dose: 100 mls/hr Lactated Ringer's (Ringers, Lactated) 1,000 mls @ 100 mls/hr IV ASDIRECTED [facility] Last Admin: 05/12/19 07:24 Dose: 100 mls/hr Lorazepam (Ativan) 1 mg PO QID PRN PRN Reason: Anxiety Last Admin: 05/12/19 08:21 Dose: 1 mg Methylprednisolone Sodium Succinate (Solu-Medrol) 125 mg IVPUSH Q12H [facility] Nicotine (Habitrol) 21 mg TRDERM QPM [facility] Last Admin: 05/11/19 18:24 Dose: 21 mg " Control Pill" 1 each PO DAILY [facility] Ondansetron HCl (Zofran) 4 mg IVPUSH Q6H PRN PRN Reason: Nausea/Vomiting Last Admin: 05/12/19 06:25 Dose: 4 mg Pantoprazole Sodium (Protonix Iv) 40 mg IVPUSH Q12H [facility] Last Admin: 05/12/19 01:56 Dose: 40 mg Sodium Chloride (Saline Flush) 10 ml FLUSH ASDIRECTED PRN PRN Reason: Keep Vein Open Last Admin: 05/12/19 09:58 Dose: 10 ml Sodium Chloride (Saline Flush) 10 ml FLUSH Q12HR [facility] Last Admin: 05/12/19 07:23 Dose: 10 ml Tramadol HCl (Ultram) 50 mg PO Q6H PRN PRN Reason: Pain (moderate 4-6) Last Admin: 05/11/19 19:50 Dose: 50 mg Discontinued Medications Al Hydroxide/Mg Hydroxide (Gi Cocktail) 30 ml PO ONETIME ONE Stop: 05/11/19 15:31 Last Admin: 05/11/19 15:39 Dose: 30 ml Famotidine (Pepcid) 40 mg IVPUSH ONETIME ONE Stop: 05/11/19 13:34 Last Admin: 05/11/19 13:45 Dose: 40 mg Famotidine (Pepcid) 20 mg IVPUSH Q12H [facility] Fentanyl (Sublimaze) 100 mcg IVPUSH ONETIME ONE Stop: 05/11/19 16:06 Last Admin: 05/11/19 16:09 Dose: 50 mcg Lactated Ringer's (Ringers, Lactated) 1,000 mls @ 999 mls/hr IV .BOLUS ONE Stop: 05/11/19 14:33 Last Admin: 05/11/19 13:59 Dose: 999 mls/hr Ciprofloxacin/Dextrose 400 mg/ (Premix) 200 mls @ 200 mls/hr IV ONETIME ONE Stop: 05/11/19 15:43 Last Admin: 05/11/19 15:05 Dose: 200 mls/hr Iopamidol (Isovue-300 (61%)) 100 ml IVPUSH ONETIME ONE Stop: 05/11/19 16:17 Last Admin: 05/11/19 16:37 Dose: 100 ml Meperidine HCl (Demerol) 50 mg IM ONETIME ONE Stop: 05/11/19 13:39 Last Admin: 05/11/19 13:48 Dose: 50 mg Ondansetron HCl (Zofran) 4 mg IVPUSH ONETIME ONE Stop: 05/11/19 13:34 Last Admin: 05/11/19 13:45 Dose: 4 mg Pantoprazole Sodium (Protonix Iv) 40 mg IVPUSH ONETIME ONE Stop: 05/11/19 13:34 Last Admin: 05/11/19 13:46 Dose: 40 mg Pantoprazole Sodium (Protonix Iv) 40 mg IVPUSH Q12H [facility] Temazepam (Restoril) 15 mg PO DAILY@2000 PRN PRN Reason: Insomnia - Exam Quality Assessment: DVT Prophylaxis. No: Supplemental Oxygen, Central Line/PICC , Urine Catheter, Skin Breakdown, Restraints General: Alert, Oriented, Cooperative, No Acute Distress HEENT: Pupils Equal, Pupils Reactive, EOMI, Mucous Membr. Moist/[place]. No: Other Neck: Supple, Trachea Midline, No JVD, No Thyromegaly, +2 Carotid Pulse wo Bruit. No: Lymphadenopathy Lungs: Clear to Auscultation, Normal Respiratory Effort. No: Rub Cardiovascular: Regular Rate, Regular Rhythm, No Murmurs. No: Gallops, Rubs GI/Abdominal Exam: Normal Bowel Sounds, Soft, Non-Tender, No Organomegaly, No Distention, No Abnormal Bruit, No Mass, Pelvis Stable. No: Guarding, Rigid, Rebound, Tender (Female) Exam: Deferred Back Exam: Normal Inspection, Full Range of Motion. No: CVA Tenderness (L), CVA Tenderness (R), Muscle Spasm Extremities: Normal Inspection, Normal Range of Motion, Non-Tender, No Pedal Edema, Normal Capillary Refill. No: Pedal Edema Peripheral Pulses: 2+: Radial (L), Radial (R), Dorsalis Pedis (L), Dorsalis Pedis (R) Skin: Warm, Dry, Intact. No: Ecchymosis Neurological: No New Focal Deficit, Other (No clinical orthostasis) Psy/Mental Status: Anxious (Mild to moderate), Depressed (Borderline). No: Agitated, Hallucinations, Withdrawal Symptoms - Problem List & Annotations (1) Abdominal pain SNOMED Code(s): 94149339 Code(s): R10.9 - UNSPECIFIED ABDOMINAL PAIN Status: Acute Priority: High Current Visit: Yes Onset Date: ~05/09/19 Qualifiers: Abdominal location: left upper quadrant Qualified Code(s): R10.12 - Left upper quadrant pain Annotation/Comment:: Resolved fever and leukocytosis this morning with somewhat improved abdominal complaints, although the patient is still needing IV Dilaudid therapy for pain control. The patient insisted on having food yesterday evening with increasing symptoms since that time in spite of bland diet, including burping, nausea, and 2 episodes of emesis subsequent to admission. Continue aggressive IV Cipro, IV Flagyl, IV Pepcid, and IV Protonix therapy. Initially planned to send patient home with aggressive outpatient treatment, including Cipro and Flagyl with suspicions of dysfunctional gallbladder with mild WBC elevation. Secondary to refractory and recurrent abdominal pain requiring aggressive pain management as above a CT scan of the abdomen and pelvis was ordered with results indicating some beginning colitis. No family history of ulcerative colitis, Crohn's disease, etc., although the patient has been having chronic intermittent problems since age 8. She will likely need further surgical outpatient evaluation, including probable colonoscopy with serial biopsies and/or laparoscopic cholecystectomy once her current colitis has resolved. Note history of borderline dysfunctional gallbladder and recent EGD in February 2019 with records released to this facility on admission. Surgical consultation on an outpatient basis and/or earlier, depending on her clinical course. Note aggressive initial treatment in the emergency room, including high-dose IV Protonix, high-dose IV Pepcid, and initial IV Cipro dose. (2) Colitis SNOMED Code(s): 17748228 Code(s): K52.9 - NONINFECTIVE GASTROENTERITIS AND COLITIS, UNSPECIFIED Status: Acute Priority: High Current Visit: Yes Onset Date: 05/11/19 Annotation/Comment:: As above (3) Tobacco abuse counseling SNOMED Code(s): 689774791, 378590611, 212352941 Code(s): Z71.6 - TOBACCO ABUSE COUNSELING Status: Chronic Priority: Medium Current Visit: Yes Annotation/Comment:: Tobacco cessation strongly encouraged for the patient and her boyfriend with tobacco cessation information to be provided at discharge. (4) Mixed anxiety depressive disorder SNOMED Code(s): 259910618 Code(s): F41.8 - OTHER SPECIFIED ANXIETY DISORDERS Status: Chronic Priority: Medium Current Visit: Yes Annotation/Comment:: Stable by patient history, however moderate control during early phases of this hospitalization secondary to her abdominal symptoms. Oral Ativan initiated, although this should not be continued at discharge. Continue to observe closely by her regular providers at discharge with further medication changes depending on her clinical course. (5) Lactic acid blood increased SNOMED Code(s): 3104373 Code(s): R79.89 - OTHER SPECIFIED ABNORMAL FINDINGS OF BLOOD CHEMISTRY Status: Acute Priority: High Current Visit: Yes Onset Date: 05/11/19 Annotation/Comment:: Lactic acid elevation normalized. Mild lactic acid elevation on admission with IV lactated Ringer's given in the emergency room. Continue IV fluids for now. IV antibiotic therapy as above. No evidence of sepsis, etc. (6) Asthma SNOMED Code(s): 425929717 Code(s): J45.909 - UNSPECIFIED ASTHMA, UNCOMPLICATED Status: Chronic Priority: Medium Current Visit: Yes Qualifiers: Asthma severity: mild Asthma persistence: intermittent Asthma complication type: uncomplicated Qualified Code(s): J45.20 - Mild intermittent asthma, uncomplicated Annotation/Comment:: No recent bronchitic type symptoms with medical therapy not required for several years. (7) Hypoalbuminemia SNOMED Code(s): 372867259 Code(s): E88.09 - OTH DISORDERS OF PLASMA-PROTEIN METABOLISM, NEC Status: Acute Priority: Medium Current Visit: Yes Onset Date: 05/12/19 Annotation/Comment:: Normal on admission. Observe for now. (8) Hypocalcemia SNOMED Code(s): 7083904 Code(s): E83.51 - HYPOCALCEMIA Status: Acute Priority: Medium Current Visit: Yes Onset Date: 05/12/19 Annotation/Comment:: Normal on admission. Observe for now - Problem List Review Problem List Initiated/Reviewed/Updated: Yes - My Orders Last 24 Hours: My Active Orders 05/11/19 13:33 Peripheral IV Care [RC] . DIRECTED Abdomen Series w Chest 1V [CR] Stat Sodium Chloride 0.9% [Saline Flush] 10 ml FLUSH ASDIRECTED PRN Peripheral IV Insertion Adult [OM.PC] Stat Resuscitation Status Stat 05/11/19 16:05 Abdomen Pelvis w Cont [CT] Stat 05/11/19 16:41 CULTURE URINE [RM] Routine 05/11/19 17:55 Acetaminophen [Tylenol] 650 mg PO Q4H PRN Ondansetron [Zofran] 4 mg IVPUSH Q6H PRN 05/11/19 17:56 Communication Order [RC] Q4HR Communication Order [RC] ROUTINE Height and Weight [RC] DAILY Intake and Output Strict [RC] 06,14,22 Oxygen Therapy [RC] PRN Pulse Oximetry [RC] ASDIRECTED Up With Assistance [RC] ASDIRECTED VTE Risk Score [RC] UPON Vital Signs [RC] Q4HR OCCULT BLOOD DIAGNOSTIC [OP] Routine GM Immunization Reflex [OM.PC] Click To Edit 05/11/19 17:57 Communication, Vaccine [RC] PER UNIT ROUTINE Vaccines to be Administered [RC] PER UNIT ROUTINE 05/11/19 18:00 Lactated Ringers [Ringers, Lactated] 1,000 ml IV ASDIRECTED metroNIDAZOLE/Normal Saline [Flagyl 500 MG in NS 100 ML] 500 mg Premix Bag 1 bag IV Q8H 05/11/19 18:15 Nicotine [Habitrol] 21 mg TRDERM QPM 05/11/19 18:47 traMADol [Ultram] 50 mg PO Q6H PRN 05/11/19 18:48 LORazepam [Ativan] 1 mg PO QID PRN 05/11/19 18:49 HYDROmorphone [Dilaudid] 1 mg IVPUSH Q4H PRN 05/11/19 20:00 Sodium Chloride 0.9% [Saline Flush] 10 ml FLUSH Q12HR 05/12/19 01:00 Pantoprazole [ProTONIX IV] 40 mg IVPUSH Q12H 05/12/19 05:11 Abdomen Series w Chest 1V [CR] Routine 05/12/19 08:00 Non-Formulary Medication [NF Drug] 1 each PO DAILY 05/12/19 10:15 methylPREDNISolone Sod Succ [Solu-MEDROL] 125 mg IVPUSH Q12H 05/12/19 12:00 Famotidine [Pepcid] 20 mg IVPUSH Q12H 05/12/19 Breakfast Nothing per Oral Now Diet [DIET] 05/13/19 05:11 CBC WITH AUTO DIFF [HEME] Routine COMPREHENSIVE METABOLIC PN,CMP [CHEM] Routine - Assessment Assessment:: As above - Plan Plan:: As above. Extensive precautions were given to the patient, who is in agreement with the treatment plan. Patient will require an additional 2-3 days of IV antibiotic, etc. therapy secondary to multiple health issues as above.
[2019-05-12] MEDS ORDERED: Famotidine 20 MG/2 ML SDV IVPUSH SCH ×2 (12:00→17:55)
[2019-05-12] MEDS: Nicotine 21 MG/24 Hr Patch TRDERM SCH (17:10)
--- NOTE | 2019-05-13 15:37 | PCM.DCSUM1 ---
Discharge Summary - Hospital Course HPI Initial Comments: See Emergency room note/admission H&P Brief History: See emergency room note/admission H&P Diagnosis: Stroke: No Modified [place] Scale: No Symptoms at All Modified [place] Scale Score: 0 - Discharge Data Discharge Date: 05/12/19 Discharge Disposition: Against Medical Advice 07 Condition: Fair - Discharge Diagnosis/Problem(s) (1) Abdominal pain SNOMED Code(s): 93595799 ICD Code: R10.9 - UNSPECIFIED ABDOMINAL PAIN Status: Acute Priority: High Onset Date: ~05/09/19 Problem Details: In spite of multiple attempts of counseling the patient throughout the day on 05/12/19 patient insisted on leaving this facility earlier than my recommendations with patient signing herself out AMA. Note that earlier today she did still have problems tolerating even a mild diet with patient changed back to an nothing by mouth diet. Patient was advised to follow-up with her regular provider [facility] in the a.m. for reevaluation, possible blood work, and continuation of antibiotic therapy, including probable Cipro and Flagyl. Resolved fever and leukocytosis this morning with somewhat improved abdominal complaints, although the patient is still needing IV Dilaudid therapy for pain control. The patient insisted on having food yesterday evening with increasing symptoms since that time in spite of bland diet, including burping, nausea, and 2 episodes of emesis subsequent to admission. Continue aggressive IV Cipro, IV Flagyl, IV Pepcid, and IV Protonix therapy. Initially planned to send patient home with aggressive outpatient treatment, including Cipro and Flagyl with suspicions of dysfunctional gallbladder with mild WBC elevation. Secondary to refractory and recurrent abdominal pain requiring aggressive pain management as above a CT scan of the abdomen and pelvis was ordered with results indicating some beginning colitis. No family history of ulcerative colitis, Crohn's disease, etc., although the patient has been having chronic intermittent problems since age 8. She will likely need further surgical outpatient evaluation, including probable colonoscopy with serial biopsies and/or laparoscopic cholecystectomy once her current colitis has resolved. Note history of borderline dysfunctional gallbladder and recent EGD in February 2019 with records released to this facility on admission. Surgical consultation on an outpatient basis and/or earlier, depending on her clinical course. Note aggressive initial treatment in the emergency room, including high-dose IV Protonix, high-dose IV Pepcid, and initial IV Cipro dose. Qualifiers: Abdominal location: left upper quadrant Qualified Code(s): R10.12 - Left upper quadrant pain (2) Colitis SNOMED Code(s): 09970816 ICD Code: K52.9 - NONINFECTIVE GASTROENTERITIS AND COLITIS, UNSPECIFIED Status: Acute Priority: High Onset Date: 05/11/19 Problem Details: As above (3) Tobacco abuse counseling SNOMED Code(s): 434306162, 742393244, 671375287 ICD Code: Z71.6 - TOBACCO ABUSE COUNSELING Status: Chronic Priority: Medium Problem Details: Tobacco cessation strongly encouraged for the patient and her boyfriend with tobacco cessation information to be provided at discharge , however patient left AMA. (4) Mixed anxiety depressive disorder SNOMED Code(s): 392726643 ICD Code: F41.8 - OTHER SPECIFIED ANXIETY DISORDERS Status: Chronic Priority: Medium Problem Details: Stable by patient history, however moderate control during early phases of this hospitalization secondary to her abdominal symptoms. In addition, note increased stressors at this time including her significant other losing his new car driver's license and possibility of them being affected from their apartment currently. Emotional support was extensively provided with patient still refusing to remain in this facility for further treatment. Oral Ativan initiated, although this should not be continued at discharge. Continue to observe closely by her regular providers at discharge with further medication changes depending on her clinical course. (5) Lactic acid blood increased SNOMED Code(s): 3769221 ICD Code: R79.89 - OTHER SPECIFIED ABNORMAL FINDINGS OF BLOOD CHEMISTRY Status: Acute Priority: High Onset Date: 05/11/19 Problem Details: Lactic acid elevation normalized. Mild lactic acid elevation on admission with IV lactated Ringer's given in the emergency room. Continue IV fluids for now. IV antibiotic therapy as above. No evidence of sepsis, etc. (6) Asthma SNOMED Code(s): 047758733 ICD Code: J45.909 - UNSPECIFIED ASTHMA, UNCOMPLICATED Status: Chronic Priority: Medium Problem Details: No recent bronchitic type symptoms with medical therapy not required for several years. Qualifiers: Asthma severity: mild Asthma persistence: intermittent Asthma complication type: uncomplicated Qualified Code(s): J45.20 - Mild intermittent asthma, uncomplicated (7) Hypoalbuminemia SNOMED Code(s): 995059124 ICD Code: E88.09 - OTH DISORDERS OF PLASMA-PROTEIN METABOLISM, NEC Status: Acute Priority: Medium Onset Date: 05/12/19 Problem Details: Normal on admission. Observe for now. (8) Hypocalcemia SNOMED Code(s): 6726378 ICD Code: E83.51 - HYPOCALCEMIA Status: Acute Priority: Medium Onset Date: 05/12/19 Problem Details: Normal on admission. Observe for now - Patient Summary/Data Operative Procedure(s) Performed: None Complications: None Recommended Follow-up Testing/Procedures: As above Planned Operative Procedure(s) after DC: As above Hospital Course: Patient left AMA as above with otherwise treatment measures as above. - Discharge Plan *PRESCRIPTION DRUG MONITORING PROGRAM REVIEWED*: Not Applicable *COPY OF PRESCRIPTION DRUG MONITORING REPORT IN PATIENT TRUNG: Not Applicable Home Medications: Home Meds Non-Formulary Medication [NF Drug] 1 tab PO DAILY 05/11/19 [History] Forms: ED Department Discharge, ED Return to Work/School Form Referrals: PCP,Not In Area [Ordering Only Provider] - - Discharge Summary/Plan Comment DC Time >30 min.: Yes (Attempting to have patient remain in facility) Discharge Summary/Plan Comment: She left AMA - General Info Date of Service: 05/13/19 Admission Dx/Problem (Free Text: Exam earlier this morning as per progress note. - Patient Data Vitals - Most Recent: Last Vital Signs Temp 37.1 C 05/12/19 19:27 Pulse 116 H 05/12/19 19:27 Resp 16 05/12/19 19:27 BP 137/75 05/12/19 19:27 Pulse Ox 100 05/12/19 19:27 Weight - Most Recent: 60.963 kg Imaging Impressions - Last 24 hrs: See earlier progress note RANDALL Results - Last 24 hrs: Microbiology 05/11/19 16:41 Urine Culture - Final Urine, Clean Catch MIXED POSITIVE NOE DAY 2 Med Orders - Current: Current Medications Discontinued Medications Acetaminophen (Tylenol) 650 mg PO Q4H PRN PRN Reason: Pain Al Hydroxide/Mg Hydroxide (Gi Cocktail) 30 ml PO ONETIME ONE Stop: 05/11/19 15:31 Last Admin: 05/11/19 15:39 Dose: 30 ml Famotidine (Pepcid) 40 mg IVPUSH ONETIME ONE Stop: 05/11/19 13:34 Last Admin: 05/11/19 13:45 Dose: 40 mg Famotidine (Pepcid) 20 mg IVPUSH Q12H [facility] Famotidine (Pepcid) 20 mg IVPUSH Q12H [facility] Last Admin: 05/12/19 11:01 Dose: 20 mg Fentanyl (Sublimaze) 100 mcg IVPUSH ONETIME ONE Stop: 05/11/19 16:06 Last Admin: 05/11/19 16:09 Dose: 50 mcg Hydromorphone HCl (Dilaudid) 1 mg IVPUSH Q4H PRN PRN Reason: Pain (severe 7-10) Last Admin: 05/12/19 07:23 Dose: 1 mg Lactated Ringer's (Ringers, Lactated) 1,000 mls @ 999 mls/hr IV .BOLUS ONE Stop: 05/11/19 14:33 Last Admin: 05/11/19 13:59 Dose: 999 mls/hr Ciprofloxacin/Dextrose 400 mg/ (Premix) 200 mls @ 200 mls/hr IV ONETIME ONE Stop: 05/11/19 15:43 Last Admin: 05/11/19 15:05 Dose: 200 mls/hr Metronidazole 500 mg/ Premix 100 mls @ 100 mls/hr IV Q8H [facility] Last Admin: 05/12/19 17:11 Dose: 100 mls/hr Lactated Ringer's (Ringers, Lactated) 1,000 mls @ 100 mls/hr IV ASDIRECTED [facility] Last Admin: 05/12/19 07:24 Dose: 100 mls/hr Iopamidol (Isovue-300 (61%)) 100 ml IVPUSH ONETIME ONE Stop: 05/11/19 16:17 Last Admin: 05/11/19 16:37 Dose: 100 ml Lorazepam (Ativan) 1 mg PO QID PRN PRN Reason: Anxiety Last Admin: 05/12/19 19:37 Dose: 1 mg Meperidine HCl (Demerol) 50 mg IM ONETIME ONE Stop: 05/11/19 13:39 Last Admin: 05/11/19 13:48 Dose: 50 mg Methylprednisolone Sodium Succinate (Solu-Medrol) 125 mg IVPUSH Q12H [facility] Last Admin: 05/12/19 11:01 Dose: 125 mg Nicotine (Habitrol) 21 mg TRDERM QPM [facility] Last Admin: 05/12/19 17:10 Dose: 21 mg " Control Pill" 1 each PO DAILY [facility] Ondansetron HCl (Zofran) 4 mg IVPUSH ONETIME ONE Stop: 05/11/19 13:34 Last Admin: 05/11/19 13:45 Dose: 4 mg Ondansetron HCl (Zofran) 4 mg IVPUSH Q6H PRN PRN Reason: Nausea/Vomiting Last Admin: 05/12/19 06:25 Dose: 4 mg Pantoprazole Sodium (Protonix Iv) 40 mg IVPUSH ONETIME ONE Stop: 05/11/19 13:34 Last Admin: 05/11/19 13:46 Dose: 40 mg Pantoprazole Sodium (Protonix Iv) 40 mg IVPUSH Q12H [facility] Pantoprazole Sodium (Protonix Iv) 40 mg IVPUSH Q12H [facility] Last Admin: 05/12/19 13:08 Dose: 40 mg Sodium Chloride (Saline Flush) 10 ml FLUSH ASDIRECTED PRN PRN Reason: Keep Vein Open Last Admin: 05/12/19 17:11 Dose: 10 ml Sodium Chloride (Saline Flush) 10 ml FLUSH Q12HR [facility] Last Admin: 05/12/19 19:34 Dose: Not Given Temazepam (Restoril) 15 mg PO DAILY@2000 PRN PRN Reason: Insomnia Tramadol HCl (Ultram) 50 mg PO Q6H PRN PRN Reason: Pain (moderate 4-6) Last Admin: 05/11/19 19:50 Dose: 50 mg Comments:: See earlier progress note for complete physical exam
== END 2019-05-12 21:04 | disposition left against medical advice (07) | DRG 249 ==
LOC: LL.ED 13:28 → LL.MS 17:32
PROVIDERS: ADMIT Family Medicine; ATTEND Family Medicine
DX: K52.9 Noninfective gastroenteritis and colitis, unspecified (principal); E88.09 Other disorders of plasma-protein metabolism, not elsewhere classified; E83.51 Hypocalcemia; H54.7 Unspecified visual loss; K21.9 Gastro-esophageal reflux disease without esophagitis; K44.9 Diaphragmatic hernia without obstruction or gangrene; K82.8 Other specified diseases of gallbladder; K29.60 Other gastritis without bleeding; M19.90 Unspecified osteoarthritis, unspecified site; M54.9 Dorsalgia, unspecified; G89.29 Other chronic pain; G43.909 Migraine, unspecified, not intractable, without status migrainosus; F17.210 Nicotine dependence, cigarettes, uncomplicated; F41.8 Other specified anxiety disorders; J45.20 Mild intermittent asthma, uncomplicated; Z91.19 Patient's noncompliance with other medical treatment and regimen; Z88.1 Allergy status to other antibiotic agents; R74.8 Abnormal levels of other serum enzymes
CPT/HCPCS: 36415; 74022; 74177; 80053; 81001; 82150; 83605; 83690; 83735; 84550; 84703; 85025; 85610; 85730; 87086; 96361; 96365; 96372; 96375; 99285-25; A9270-GY; C9113; J0744; J1170; J2175; J2405; J2930; J3010; J3490; J7120; Q9967

== ENCOUNTER 2019-05-15 15:00 | Inpatient (IN) | payer BC ==
[2019-05-15] MEDS: Sodium Chloride 0.9% 1,000 ML IV SCH ×2 (15:46→23:57)
[2019-05-15] MEDS ORDERED: HYDROmorphone 1 MG/ML Syringe IVPUSH ONE (15:46)
--- NOTE | 2019-05-15 15:53 | EDM.PDOC ---
ED HPI GENERAL MEDICAL PROBLEM - General Chief Complaint: General Stated Complaint: left sided abdominal pain Time Seen by Provider: 05/15/19 15:15 Source of Information: Reports: Patient History Limitations: Reports: No Limitations - History of Present Illness INITIAL COMMENTS - FREE TEXT/NARRATIVE: Patient is a 18-year-old about 5 days ago was admitted with chief complaint of severe abdominal pain at that time she was diagnosed with colitis and started on antibiotic after about 24 hours in the hospital patient was feeling much better decided to leave AMA the next day patient started having abdominal pain again and has been home for about 3-4 days with abdominal pain nausea and diarrhea she came back in for evaluation and treatment Onset: Gradual Duration: Day(s):, Getting Worse Location: Reports: Abdomen Quality: Reports: Stabbing (Intermittent) Severity: Moderate Improves with: Reports: None Worsens with: Reports: Eating (Food makes it worse the only think she could tolerate a saltine crackers) Context: Reports: Other (Colitis) Associated Symptoms: Reports: Nausea/Vomiting (Patient had had nausea and diarrhea) Treatments 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 Cardiovascular History: Reports: None, Other (See Below) Other Cardiovascular History: Patient does now know her cholesterol status. Respiratory History: Reports: Asthma, Other (See Below) Other Respiratory History: Childhood asthma currently nonproblematic. Gastrointestinal History: Reports: Chronic Diarrhea, Gastritis, GERD, Hiatal Hernia, Other (See Below) Other Gastrointestinal History: Small hiatal hernia. Dysfunctional gallbladder by HIDA scan in February 2019 with no known cholelithiasis. Chronic nonspecific abdominal pain since age 8 with possible stress gastritis versus irritable bowel syndrome with chronic diarrhea. Other PARER History: LMP 05/10/19. Musculoskeletal History: Reports: Arthritis, Back Pain, Chronic, Fracture, Other (See Below) Other Musculoskeletal History: Tibial fibular fracture in infancyside unknown. Neurological History: Reports: Headaches, Chronic, Migraines Psychiatric History: Reports: Addiction, Anxiety, Depression, Psych Hospitalization(s), Suicidal Ideation, Other (See Below) Other Psychiatric History: History of illicit drug use, including methamphetamines between ages 11 and 14, which did require inpatient treatment at age 14 with additional anxiety and depression disorder and suicidal ideation with inpatient treatment as above. Marijuana use between ages 11 and 16. No previous IV drug use. Endocrine/Metabolic History: Reports: None Hematologic History: Reports: None Immunologic History: Reports: None Oncologic (Cancer) History: Reports: None Dermatologic History: Reports: None - Infectious Disease History Infectious Disease History: Reports: None - Past Surgical History Head Surgeries/Procedures: Reports: None HEENT Surgical History: Reports: None Cardiovascular Surgical History: Reports: None Respiratory Surgical History: Reports: None GI Surgical History: Reports: EGD, Other (See Below) Other GI Surgeries/Procedures: EGD on 01/22/19. Female Surgical History: Reports: None Endocrine Surgical History: Reports: None Neurological Surgical History: Reports: None Musculoskeletal Surgical History: Reports: None Oncologic Surgical History: Reports: None Dermatological Surgical History: Reports: None - Past Imaging History Past Imaging History: Reports: HIDA Scan (Borderline positive for dysfunctional gallbladder and February 2019 by patient history.) Social & Family History - Family History HEENT: Reports: None Cardiac: Reports: None Respiratory: Reports: None GI: Reports: None : Reports: None OBGYN: Reports: None Musculoskeletal: Reports: None Neurological: Reports: None Psychiatric: Reports: Anxiety, Depression, Other (See Below) Other Psychiatric Family History: Anxiety depression disorder in parents and maternal/paternal grandparents with maternal grandfather dying in his 60s secondary to alcohol abuse. Endocrine/Metabolic: Reports: None Hematologic: Reports: None Immunologic: Reports: None Oncologic: Reports: None - Tobacco Use Smoking Status *Q: Current Every Day Smoker Years of Tobacco use: 12 Packs/Tins Daily: 0.2 Used Tobacco, but Quit: No Second Hand Smoke Exposure: No - Caffeine Use Caffeine Use: Reports: Energy Drinks, Soda Other Caffeine Use: once a week - Alcohol Use Days Per Week of Alcohol Use: 3 Number of Drinks Per Day: 3 Total Drinks Per Week: 9 - Recreational Drug Use Recreational Drug Use: Yes Drug Use in Last 12 Months: Yes Recreational Drug Type: Reports: Marijuana/Hashish Recreational Drug Use Frequency: Monthly - Sexual History Sexual History: Reports: Single Partner - Living Situation & Occupation Living situation: Reports: Single, with Significant Other 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) ED ROS GENERAL - Review of Systems Review Of Systems: See Below Constitutional: Denies: Fever HEENT: Reports: No Symptoms Respiratory: Reports: No Symptoms Cardiovascular: Reports: No Symptoms Endocrine: Reports: No Symptoms GI/Abdominal: Reports: Abdominal Pain, Diarrhea, Nausea, Vomiting : Reports: No Symptoms Musculoskeletal: Reports: No Symptoms Skin: Reports: No Symptoms Neurological: Reports: No Symptoms Psychiatric: Reports: No Symptoms Hematologic/Lymphatic: Reports: No Symptoms Immunologic: Reports: No Symptoms ED EXAM, GENERAL - Physical Exam Exam: See Below Exam Limited By: No Limitations General Appearance: Moderate Distress Eye Exam: Bilateral Eye: EOMI, PERRL Ears: Normal External Exam, Normal Canal, Hearing Grossly Normal, Normal TMs Ear Exam: Bilateral Ear: Auricle Normal, Canal Normal, TM normal Nose: Normal Inspection, Normal Mucosa, No Blood Throat/Mouth: Normal Inspection, Normal Lips, Normal Teeth, Normal Gums, Normal Oropharynx, Normal Voice, No Airway Compromise Head: Atraumatic, Normocephalic Neck: Normal Inspection, Supple, Non-Tender, Full Range of Motion Respiratory/Chest: No Respiratory Distress, Lungs Clear, Normal Breath Sounds, No Accessory Muscle Use, Chest Non-Tender Cardiovascular: Normal Peripheral Pulses, Regular Rate, Rhythm, No Edema, No Gallop, No JVD, No Murmur, No Rub GI/Abdominal: Soft, No Mass, Tender, Abnormal Bowel Sounds (Hyperactive) (Female) Exam: Deferred Back Exam: Normal Inspection, Full Range of Motion, NT Extremities: Normal Inspection, Normal Range of Motion, Non-Tender, Normal Capillary Refill, No Pedal Edema Neurological: Alert, Oriented, CN II-XII Intact, Normal Cognition, Normal Gait, Normal Reflexes, No Motor/Sensory Deficits Psychiatric: Normal Affect, Normal Mood Skin Exam: Warm, Dry, Intact, Normal Color, No Rash Lymphatic: No Adenopathy Course - Vital Signs Last Recorded V/S: Last Vital Signs Temp 98.5 F 05/15/19 16:48 Pulse 78 05/15/19 16:48 Resp 17 05/15/19 16:48 BP 118/78 05/15/19 16:48 Pulse Ox 97 05/15/19 16:48 - Orders/Labs/Meds Orders: Active Orders 24 hr Category Date Time Status Ciprofloxacin in D5W [Cipro in D5W 400 MG/200 ML] 400 Med 05/15/19 20:00 Active mg Premix Bag 1 bag IV Q12HR Pantoprazole [ProTONIX IV] Med 05/15/19 16:30 Active 40 mg IVPUSH Q12H Sodium Chloride 0.9% [Normal Saline] 1,000 ml Med 05/15/19 15:45 Active IV ASDIRECTED Sodium Chloride 0.9% [Saline Flush] Med 05/15/19 15:36 Active 10 ml FLUSH ASDIRECTED PRN metroNIDAZOLE/Normal Saline [Flagyl 500 MG in NS 100 ML Med 05/15/19 16:30 Active ] 500 mg Premix Bag 1 bag IV Q8H Saline Lock Insert [OM.PC] Stat Oth 05/15/19 15:36 Ordered Medication Orders Fentanyl (Sublimaze) 50 mcg IVPUSH ONETIME ONE Stop: 05/15/19 19:05 Sodium Chloride (Normal Saline) 1,000 mls @ 150 mls/hr IV ASDIRECTED [facility] Last Admin: 05/15/19 15:46 Dose: 150 mls/hr Ciprofloxacin/Dextrose 400 mg/ (Premix) 200 mls @ 200 mls/hr IV Q12HR [facility] Metronidazole 500 mg/ Premix 100 mls @ 100 mls/hr IV Q8H [facility] Last Admin: 05/15/19 16:27 Dose: 100 mls/hr Ondansetron HCl (Zofran) 4 mg IVPUSH Q6H PRN PRN Reason: Nausea/Vomiting Ondansetron HCl (Zofran) 8 mg IVPUSH Q6H PRN PRN Reason: Nausea/Vomiting Pantoprazole Sodium (Protonix Iv) 40 mg IVPUSH Q12H [facility] Last Admin: 05/15/19 16:27 Dose: 40 mg Sodium Chloride (Saline Flush) 10 ml FLUSH ASDIRECTED PRN PRN Reason: Keep Vein Open Last Admin: 05/15/19 16:28 Dose: 10 ml Labs: Laboratory Tests 05/15/19 05/15/19 05/15/19 Range/Units 15:41 15:41 15:41 WBC 10.1 (4.0-10.2) K/uL RBC 4.89 (3.77-5.09) M/uL Hgb 15.4 D (11.7-15.5) g/dL Hct 42.8 (34.0-46.0) % MCV 87.5 (84.0-98.0) fL MCH 31.5 (28.2-33.3) pg MCHC 36.0 (31.7-36.0) g/dL RDW 12.6 (11.2-14.1) % Plt Count 313 (150-350) K/uL Neut % (Auto) 67.7 (45.0-80.0) % Lymph % (Auto) 18.7 (10.0-50.0) % [place] % (Auto) 9.6 (2.0-14.0) % Eos % (Auto) 3.7 (0.0-5.0) % Baso % (Auto) 0.3 (0.0-2.0) % Neut # (Auto) 6.83 (1.40-7.00) K/uL Lymph # (Auto) 1.88 (0.50-3.50) K/uL [place] # (Auto) 0.97 (0.00-1.00) K/uL Eos # (Auto) 0.37 (0.00-0.50) K/uL Baso # (Auto) 0.03 (0.00-0.20) K/uL Sodium 138 (136-145) mmol/L Potassium 3.6 (3.5-5.1) mmol/L Chloride 100 (98-107) mmol/L Carbon Dioxide 24.6 (21.0-32.0) mmol/L BUN 12 (7-18) mg/dL Creatinine 0.80 (0.51-1.17) mg/dL Est Cr Clr Drug Dosing 92.79 mL/min Estimated GFR (MDRD) > 60 mL/min Glucose 93 (74-106) mg/dL Lactic Acid 1.6 (0.4-2.0) mmol/L Calcium 8.9 (8.5-10.1) mg/dL Total Bilirubin 0.3 (0.2-1.0) mg/dL AST 37 (15-37) U/L ALT 57 (12-78) U/L Alkaline Phosphatase 54 (46-116) IU/L Total Protein 7.2 (6.4-8.2) g/dL Albumin 3.6 (3.4-5.0) g/dL Meds: Medications Generic Name Dose Route Start Last Admin Trade Name Freq PRN Reason Stop Dose Admin Fentanyl 50 mcg 05/15/19 19:04 Sublimaze IVPUSH 05/15/19 19:05 ONETIME ONE Sodium Chloride 1,000 mls @ 150 mls/hr 05/15/19 15:45 05/15/19 15:46 Normal Saline IV 150 mls/hr ASDIRECTED [facility] Administration Ciprofloxacin/Dextrose 400 mg/ 200 mls @ 200 mls/hr 05/15/19 20:00 Premix IV Q12HR [facility] Metronidazole 500 mg/ Premix 100 mls @ 100 mls/hr 05/15/19 16:30 05/15/19 16: 27 IV 100 mls/hr Q8H [facility] Administration Ondansetron HCl 4 mg 05/15/19 18:58 Zofran IVPUSH Q6H PRN Nausea/Vomiting Ondansetron HCl 8 mg 05/15/19 19:03 Zofran IVPUSH Q6H PRN Nausea/Vomiting Pantoprazole Sodium 40 mg 05/15/19 16:30 05/15/19 16:27 Protonix Iv IVPUSH 40 mg Q12H [facility] Administration Sodium Chloride 10 ml 05/15/19 15:36 05/15/19 16:28 Saline Flush FLUSH 10 ml ASDIRECTED PRN Administration Keep Vein Open Discontinued Medications Generic Name Dose Route Start Last Admin Trade Name Freq PRN Reason Stop Dose Admin Hydromorphone HCl 1 mg 05/15/19 15:46 05/15/19 15:50 Dilaudid IVPUSH 05/15/19 15:47 1 mg ONETIME ONE Administration Ondansetron HCl 4 mg 05/15/19 16:22 05/15/19 16:27 Zofran IVPUSH 4 mg Q6H PRN Administration Nausea/Vomiting Departure - Departure Time of Disposition: 16:16 Disposition: Admitted As Inpatient 64 Condition: Serious Clinical Impression: Colitis, Mesenteric adenitis Abdominal pain Qualifiers: Abdominal location: left upper quadrant Qualified Code(s): R10.12 - Left upper quadrant pain - Discharge Information *PRESCRIPTION DRUG MONITORING PROGRAM REVIEWED*: No *COPY OF PRESCRIPTION DRUG MONITORING REPORT IN PATIENT TRUNG: No - My Orders Last 24 Hours: My Active Orders 05/15/19 15:36 Sodium Chloride 0.9% [Saline Flush] 10 ml FLUSH ASDIRECTED PRN Saline Lock Insert [OM.PC] Stat 05/15/19 15:45 Sodium Chloride 0.9% [Normal Saline] 1,000 ml IV ASDIRECTED 05/15/19 16:30 Pantoprazole [ProTONIX IV] 40 mg IVPUSH Q12H metroNIDAZOLE/Normal Saline [Flagyl 500 MG in NS 100 ML] 500 mg Premix Bag 1 bag IV Q8H 05/15/19 20:00 Ciprofloxacin in D5W [Cipro in D5W 400 MG/200 ML] 400 mg Premix Bag 1 bag IV Q12HR - Assessment/Plan Last 24 Hours: My Active Orders 05/15/19 15:36 Sodium Chloride 0.9% [Saline Flush] 10 ml FLUSH ASDIRECTED PRN Saline Lock Insert [OM.PC] Stat 05/15/19 15:45 Sodium Chloride 0.9% [Normal Saline] 1,000 ml IV ASDIRECTED 05/15/19 16:30 Pantoprazole [ProTONIX IV] 40 mg IVPUSH Q12H metroNIDAZOLE/Normal Saline [Flagyl 500 MG in NS 100 ML] 500 mg Premix Bag 1 bag IV Q8H 05/15/19 20:00 Ciprofloxacin in D5W [Cipro in D5W 400 MG/200 ML] 400 mg Premix Bag 1 bag IV Q12HR
[2019-05-15 16:06] LABS: CHLORIDE,CL 100 mmol/L (98-107); SODIUM,NA 138 mmol/L (136-145)
[2019-05-15] MEDS ORDERED: Ondansetron 4 MG/2 ML SDV IVPUSH PRN (16:22)
[2019-05-15] MEDS: metroNIDAZOLE/Normal Saline 500 MG in Premix Bag 1 BAG IV SCH ×2 (16:27→23:57)
[2019-05-15] MEDS: Sodium Chloride 0.9% 10 ML Syringe FLUSH PRN (16:28)
[2019-05-15] MEDS ORDERED: Pantoprazole 40 MG Vial IVPUSH SCH ×2 (16:30→20:00)
[2019-05-15] MEDS ORDERED: fentaNYL 100 MCG/2 ML SDV IVPUSH ONE (19:04)
[2019-05-15] MEDS: Ciprofloxacin in D5W 400 MG in Premix Bag 1 BAG IV SCH ×2 (19:40)
[2019-05-15] MEDS: Ondansetron 4 MG/2 ML SDV IVPUSH PRN (20:36)
[2019-05-16] MEDS: Ondansetron 4 MG/2 ML SDV IVPUSH PRN ×4 (01:56→20:08)
[2019-05-16] MEDS: Sodium Chloride 0.9% 1,000 ML IV SCH ×2 (07:49→17:02)
[2019-05-16] MEDS: Ciprofloxacin in D5W 400 MG in Premix Bag 1 BAG IV SCH ×4 (07:50→19:10)
[2019-05-16] MEDS: Pantoprazole 40 MG Vial IVPUSH SCH ×2 (07:50→19:10)
[2019-05-16] MEDS: Sodium Chloride 0.9% 10 ML Syringe FLUSH PRN ×5 (07:50→19:10)
[2019-05-16] MEDS: fentaNYL 100 MCG/2 ML SDV IVPUSH PRN ×3 (09:07→20:40)
[2019-05-16] MEDS: Atropine/Diphenoxylate 0.025-2.5 MG Tab PO SCH ×3 (09:09→21:43)
[2019-05-16] MEDS: metroNIDAZOLE/Normal Saline 500 MG in Premix Bag 1 BAG IV SCH ×2 (09:09→17:02)
--- NOTE | 2019-05-16 13:58 | PCM.PN ---
- General Info Date of Service: 05/16/19 Functional Status: Denies: Pain Controlled, Tolerating Diet - Review of Systems General: Reports: Weakness, Fatigue HEENT: Reports: No Symptoms Pulmonary: Reports: No Symptoms Cardiovascular: Reports: No Symptoms Gastrointestinal: Reports: Abdominal Pain, Diarrhea. Denies: Nausea, Vomiting Genitourinary: Reports: No Symptoms Musculoskeletal: Reports: No Symptoms Skin: Reports: No Symptoms Neurological: Reports: No Symptoms Psychiatric: Reports: No Symptoms - Patient Data Vitals - Most Recent: Last Vital Signs Temp 98.6 F 05/16/19 07:51 Pulse 75 05/16/19 07:51 Resp 17 05/16/19 07:51 BP 122/63 05/16/19 07:51 Pulse Ox 99 05/16/19 07:51 Weight - Most Recent: 287 lb 0.67 oz I&O - Last 24 Hours: Intake & Output 05/15/19 05/16/19 05/16/19 22:59 06:59 14:59 Intake Total 0 2061 290 Output Total 150 Balance -150 2061 290 Lab Results Last 24 Hours: Laboratory Results - last 24 hr 05/15/19 05/15/19 05/15/19 Range/Units 15:41 15:41 15:41 WBC 10.1 (4.0-10.2) K/uL RBC 4.89 (3.77-5.09) M/uL Hgb 15.4 D (11.7-15.5) g/dL Hct 42.8 (34.0-46.0) % MCV 87.5 (84.0-98.0) fL MCH 31.5 (28.2-33.3) pg MCHC 36.0 (31.7-36.0) g/dL RDW 12.6 (11.2-14.1) % Plt Count 313 (150-350) K/uL Neut % (Auto) 67.7 (45.0-80.0) % Lymph % (Auto) 18.7 (10.0-50.0) % [place] % (Auto) 9.6 (2.0-14.0) % Eos % (Auto) 3.7 (0.0-5.0) % Baso % (Auto) 0.3 (0.0-2.0) % Neut # (Auto) 6.83 (1.40-7.00) K/uL Lymph # (Auto) 1.88 (0.50-3.50) K/uL [place] # (Auto) 0.97 (0.00-1.00) K/uL Eos # (Auto) 0.37 (0.00-0.50) K/uL Baso # (Auto) 0.03 (0.00-0.20) K/uL Sodium 138 (136-145) mmol/L Potassium 3.6 (3.5-5.1) mmol/L Chloride 100 (98-107) mmol/L Carbon Dioxide 24.6 (21.0-32.0) mmol/L BUN 12 (7-18) mg/dL Creatinine 0.80 (0.51-1.17) mg/dL Est Cr Clr Drug Dosing 92.79 mL/min Estimated GFR (MDRD) > 60 mL/min Glucose 93 (74-106) mg/dL Lactic Acid 1.6 (0.4-2.0) mmol/L Calcium 8.9 (8.5-10.1) mg/dL Total Bilirubin 0.3 (0.2-1.0) mg/dL AST 37 (15-37) U/L ALT 57 (12-78) U/L Alkaline Phosphatase 54 (46-116) IU/L Total Protein 7.2 (6.4-8.2) g/dL Albumin 3.6 (3.4-5.0) g/dL 05/16/19 Range/Units 07:05 WBC 10.4 H (4.0-10.2) K/uL RBC 4.89 (3.77-5.09) M/uL Hgb 14.9 (11.7-15.5) g/dL Hct 43.1 (34.0-46.0) % MCV 88.1 (84.0-98.0) fL MCH 30.5 (28.2-33.3) pg MCHC 34.6 (31.7-36.0) g/dL RDW 12.7 (11.2-14.1) % Plt Count 295 (150-350) K/uL Neut % (Auto) 75.1 (45.0-80.0) % Lymph % (Auto) 12.4 (10.0-50.0) % [place] % (Auto) 8.4 (2.0-14.0) % Eos % (Auto) 4.0 (0.0-5.0) % Baso % (Auto) 0.1 (0.0-2.0) % Neut # (Auto) 7.79 H (1.40-7.00) K/uL Lymph # (Auto) 1.29 (0.50-3.50) K/uL [place] # (Auto) 0.87 (0.00-1.00) K/uL Eos # (Auto) 0.41 (0.00-0.50) K/uL Baso # (Auto) 0.01 (0.00-0.20) K/uL Sodium (136-145) mmol/L Potassium (3.5-5.1) mmol/L Chloride (98-107) mmol/L Carbon Dioxide (21.0-32.0) mmol/L BUN (7-18) mg/dL Creatinine (0.51-1.17) mg/dL Est Cr Clr Drug Dosing mL/min Estimated GFR (MDRD) mL/min Glucose (74-106) mg/dL Lactic Acid (0.4-2.0) mmol/L Calcium (8.5-10.1) mg/dL Total Bilirubin (0.2-1.0) mg/dL AST (15-37) U/L ALT (12-78) U/L Alkaline Phosphatase (46-116) IU/L Total Protein (6.4-8.2) g/dL Albumin (3.4-5.0) g/dL Med Orders - Current: Current Medications Diphenoxylate HCl/Atropine (Lomotil 0.025-2.5 Mg) 1 tab PO Q6HR [facility] Last Admin: 05/16/19 09:09 Dose: 1 tab Fentanyl (Sublimaze) 50 mcg IVPUSH Q4H PRN PRN Reason: Pain Last Admin: 05/16/19 09:07 Dose: 50 mcg Sodium Chloride (Normal Saline) 1,000 mls @ 150 mls/hr IV ASDIRECTED [facility] Last Admin: 05/16/19 07:49 Dose: 150 mls/hr Ciprofloxacin/Dextrose 400 mg/ (Premix) 200 mls @ 200 mls/hr IV Q12HR [facility] Last Admin: 05/16/19 07:50 Dose: 200 mls/hr Metronidazole 500 mg/ Premix 100 mls @ 100 mls/hr IV Q8H [facility] Last Admin: 05/16/19 09:09 Dose: 100 mls/hr Ondansetron HCl (Zofran) 4 mg IVPUSH Q6H PRN PRN Reason: Nausea/Vomiting Last Admin: 05/15/19 20:36 Dose: 4 mg Ondansetron HCl (Zofran) 8 mg IVPUSH Q6H PRN PRN Reason: Nausea/Vomiting Last Admin: 05/16/19 07:50 Dose: 8 mg Pantoprazole Sodium (Protonix Iv) 40 mg IVPUSH Q12H [facility] Last Admin: 05/16/19 07:50 Dose: 40 mg Sodium Chloride (Saline Flush) 10 ml FLUSH ASDIRECTED PRN PRN Reason: Keep Vein Open Last Admin: 05/16/19 09:09 Dose: 10 ml Discontinued Medications Fentanyl (Sublimaze) 50 mcg IVPUSH ONETIME ONE Stop: 05/15/19 19:05 Last Admin: 05/15/19 19:34 Dose: 50 mcg Hydromorphone HCl (Dilaudid) 1 mg IVPUSH ONETIME ONE Stop: 05/15/19 15:47 Last Admin: 05/15/19 15:50 Dose: 1 mg Ondansetron HCl (Zofran) 4 mg IVPUSH Q6H PRN PRN Reason: Nausea/Vomiting Last Admin: 05/15/19 16:27 Dose: 4 mg Pantoprazole Sodium (Protonix Iv) 40 mg IVPUSH Q12H [facility] Last Admin: 05/15/19 16:27 Dose: 40 mg Pantoprazole Sodium (Protonix Iv) 40 mg IVPUSH Q12H [facility] - Exam General: Alert, Oriented HEENT: Pupils Equal, Pupils Reactive, EOMI, Mucous Membr. Moist/[place] Neck: Supple Lungs: Clear to Auscultation, Normal Respiratory Effort Cardiovascular: Regular Rate, Regular Rhythm GI/Abdominal Exam: Normal Bowel Sounds, Soft, No Distention, Pelvis Stable, Tender (Female) Exam: Deferred Back Exam: Normal Inspection, Full Range of Motion Extremities: Normal Inspection, Normal Range of Motion, Non-Tender, No Pedal Edema, Normal Capillary Refill Skin: Warm, Dry, Intact Neurological: No New Focal Deficit Psy/Mental Status: Alert, Normal Affect, Normal Mood - Problem List & Annotations (1) Abdominal pain SNOMED Code(s): 05473424 Code(s): R10.9 - UNSPECIFIED ABDOMINAL PAIN Status: Acute Priority: High Current Visit: No Onset Date: ~05/09/19 Qualifiers: Abdominal location: left upper quadrant Qualified Code(s): R10.12 - Left upper quadrant pain Annotation/Comment:: See plan below. (2) Colitis SNOMED Code(s): 92066922 Code(s): K52.9 - NONINFECTIVE GASTROENTERITIS AND COLITIS, UNSPECIFIED Status: Acute Priority: High Current Visit: No Onset Date: 05/11/19 Annotation/Comment:: See plan below. - Problem List Review Problem List Initiated/Reviewed/Updated: Yes - My Orders Last 24 Hours: My Active Orders 05/15/19 15:36 Sodium Chloride 0.9% [Saline Flush] 10 ml FLUSH ASDIRECTED PRN Saline Lock Insert [OM.PC] Stat 05/15/19 15:45 Sodium Chloride 0.9% [Normal Saline] 1,000 ml IV ASDIRECTED 05/15/19 16:30 metroNIDAZOLE/Normal Saline [Flagyl 500 MG in NS 100 ML] 500 mg Premix Bag 1 bag IV Q8H 05/15/19 18:56 Patient Status [ADT] Routine Resuscitation Status Routine 05/15/19 18:58 Patient Status [ADT] Routine Ambulate [RC] ASDIRECTED Oxygen Therapy [RC] .PRN Vital Signs [RC] Q4HWA Ondansetron [Zofran] 4 mg IVPUSH Q6H PRN 05/15/19 19:03 Ondansetron [Zofran] 8 mg IVPUSH Q6H PRN 05/15/19 20:00 Ciprofloxacin in D5W [Cipro in D5W 400 MG/200 ML] 400 mg Premix Bag 1 bag IV Q12HR 05/16/19 02:15 CLOSTRIDIUM DIFFICILE TOX RFLX [MREF] Routine 05/16/19 02:16 Isolation [COMM] Stat 05/16/19 08:00 Pantoprazole [ProTONIX IV] 40 mg IVPUSH Q12H 05/16/19 09:00 fentaNYL [Sublimaze] 50 mcg IVPUSH Q4H PRN 05/16/19 10:00 Atropine/Diphenoxylate [Lomotil 0.025-2.5 MG] 1 tab PO Q6HR 05/16/19 13:53 Abdomen w Cont [CT] Routine 05/16/19 16:00 sulfaSALAzine 500 mg PO QID 05/16/19 Lunch Nothing Per Oral Diet [DIET] 05/17/19 05:11 CBC WITH AUTO DIFF [HEME] AM COMPREHENSIVE METABOLIC PN,CMP [CHEM] DAILY LACTIC ACID [CHEM] Routine 05/18/19 05:11 CBC WITH AUTO DIFF [HEME] AM COMPREHENSIVE METABOLIC PN,CMP [CHEM] DAILY 05/19/19 05:11 CBC WITH AUTO DIFF [HEME] AM COMPREHENSIVE METABOLIC PN,CMP [CHEM] DAILY 05/20/19 05:11 CBC WITH AUTO DIFF [HEME] AM COMPREHENSIVE METABOLIC PN,CMP [CHEM] DAILY - Plan Plan:: Patient was seen today. Pain is improving. Pain is still 6-7 out of 10. At this time, I discussed with her care plan and explained to her the need for completing treatment which was the cause of her return admission.
[2019-05-16] MEDS ORDERED: Diatrizoate Meglumine/Diatrizoate Sodium 37% 30 ML Bottle PO ONE (14:05)
[2019-05-16] MEDS ORDERED: Iopamidol 612 MG/ML 100 ML Bottle IVPUSH ONE (14:05)
[2019-05-16] MEDS: sulfaSALAzine 500 MG Tab PO SCH ×2 (15:29→19:10)
[2019-05-17] MEDS: Sodium Chloride 0.9% 1,000 ML IV SCH ×2 (01:47→19:32)
[2019-05-17] MEDS: Sodium Chloride 0.9% 10 ML Syringe FLUSH PRN ×2 (01:50→16:37)
[2019-05-17] MEDS: metroNIDAZOLE/Normal Saline 500 MG in Premix Bag 1 BAG IV SCH ×3 (01:50→15:51)
[2019-05-17] MEDS: Ondansetron 4 MG/2 ML SDV IVPUSH PRN ×3 (02:39→16:36)
[2019-05-17] MEDS: Atropine/Diphenoxylate 0.025-2.5 MG Tab PO SCH ×3 (04:46→15:51)
[2019-05-17] MEDS: fentaNYL 100 MCG/2 ML SDV IVPUSH PRN ×2 (07:55→17:38)
[2019-05-17] MEDS: Pantoprazole 40 MG Vial IVPUSH SCH ×2 (07:56→19:31)
[2019-05-17] MEDS: Ciprofloxacin in D5W 400 MG in Premix Bag 1 BAG IV SCH ×4 (07:56→19:31)
[2019-05-17] MEDS: sulfaSALAzine 500 MG Tab PO SCH ×4 (07:56→19:31)
[2019-05-17 08:09] LABS: CHLORIDE,CL 98 mmol/L (98-107); SODIUM,NA 138 mmol/L (136-145)
--- NOTE | 2019-05-17 11:34 | PCM.PN ---
- General Info Date of Service: 05/17/19 Functional Status: Reports: Ambulating - Review of Systems General: Reports: Appetite HEENT: Reports: No Symptoms Pulmonary: Reports: No Symptoms Cardiovascular: Reports: No Symptoms Gastrointestinal: Reports: Abdominal Pain (Improving) Genitourinary: Reports: No Symptoms Musculoskeletal: Reports: No Symptoms Skin: Reports: No Symptoms Neurological: Reports: No Symptoms Psychiatric: Reports: No Symptoms - Patient Data Vitals - Most Recent: Last Vital Signs Temp 98.6 F 05/17/19 08:00 Pulse 76 05/17/19 08:00 Resp 18 05/17/19 08:00 BP 118/66 05/17/19 08:00 Pulse Ox 98 05/17/19 08:00 Weight - Most Recent: 130 lb 3.2 oz I&O - Last 24 Hours: Intake & Output 05/16/19 05/17/19 05/17/19 22:59 06:59 14:59 Intake Total 1667 2400 587 Output Total 300 900 Balance 1667 2100 -313 Lab Results Last 24 Hours: Laboratory Results - last 24 hr 05/17/19 05/17/19 05/17/19 Range/Units 07:40 07:40 07:45 WBC 9.4 (4.0-10.2) K/uL RBC 4.59 (3.77-5.09) M/uL Hgb 14.1 (11.7-15.5) g/dL Hct 40.3 (34.0-46.0) % MCV 87.8 (84.0-98.0) fL MCH 30.7 (28.2-33.3) pg MCHC 35.0 (31.7-36.0) g/dL RDW 12.6 (11.2-14.1) % Plt Count 250 (150-350) K/uL Neut % (Auto) 67.7 (45.0-80.0) % Lymph % (Auto) 19.0 (10.0-50.0) % [place] % (Auto) 10.1 (2.0-14.0) % Eos % (Auto) 3.1 (0.0-5.0) % Baso % (Auto) 0.1 (0.0-2.0) % Neut # (Auto) 6.36 (1.40-7.00) K/uL Lymph # (Auto) 1.79 (0.50-3.50) K/uL [place] # (Auto) 0.95 (0.00-1.00) K/uL Eos # (Auto) 0.29 (0.00-0.50) K/uL Baso # (Auto) 0.01 (0.00-0.20) K/uL Sodium 138 (136-145) mmol/L Potassium 3.1 L (3.5-5.1) mmol/L Chloride 98 (98-107) mmol/L Carbon Dioxide 23.1 (21.0-32.0) mmol/L BUN 4 L (7-18) mg/dL Creatinine 0.78 (0.51-1.17) mg/dL Est Cr Clr Drug Dosing 95.14 mL/min Estimated GFR (MDRD) > 60 mL/min Glucose 79 (74-106) mg/dL Lactic Acid 1.1 (0.4-2.0) mmol/L Calcium 7.9 L (8.5-10.1) mg/dL Total Bilirubin 0.3 (0.2-1.0) mg/dL AST 64 H (15-37) U/L ALT 73 (12-78) U/L Alkaline Phosphatase 49 (46-116) IU/L Total Protein 5.7 L (6.4-8.2) g/dL Albumin 2.9 L (3.4-5.0) g/dL [place] Results Last 24 Hours: Microbiology 05/16/19 00:01 Clostridioides difficile (PCR) - Final Stool / Feces - Stool, Liquid Med Orders - Current: Current Medications Diphenoxylate HCl/Atropine (Lomotil 0.025-2.5 Mg) 1 tab PO Q6HR [facility] Last Admin: 05/17/19 10:18 Dose: 1 tab Fentanyl (Sublimaze) 50 mcg IVPUSH Q4H PRN PRN Reason: Pain Last Admin: 05/17/19 07:55 Dose: 50 mcg Sodium Chloride (Normal Saline) 1,000 mls @ 150 mls/hr IV ASDIRECTED [facility] Last Admin: 05/17/19 01:47 Dose: 150 mls/hr Ciprofloxacin/Dextrose 400 mg/ (Premix) 200 mls @ 200 mls/hr IV Q12HR [facility] Last Admin: 05/17/19 07:56 Dose: 200 mls/hr Metronidazole 500 mg/ Premix 100 mls @ 100 mls/hr IV Q8H [facility] Last Admin: 05/17/19 10:17 Dose: 100 mls/hr Ondansetron HCl (Zofran) 4 mg IVPUSH Q6H PRN PRN Reason: Nausea/Vomiting Last Admin: 05/15/19 20:36 Dose: 4 mg Ondansetron HCl (Zofran) 8 mg IVPUSH Q6H PRN PRN Reason: Nausea/Vomiting Last Admin: 05/17/19 07:55 Dose: 8 mg Pantoprazole Sodium (Protonix Iv) 40 mg IVPUSH Q12H [facility] Last Admin: 05/17/19 07:56 Dose: 40 mg Sodium Chloride (Saline Flush) 10 ml FLUSH ASDIRECTED PRN PRN Reason: Keep Vein Open Last Admin: 05/17/19 01:50 Dose: 10 ml Sulfasalazine (Sulfasalazine) 500 mg PO QID [facility] Last Admin: 05/17/19 07:56 Dose: 500 mg Discontinued Medications Diatrizoate Meglum/Diatrizoate Sod (Gastrografin 37%) 30 ml PO ONETIME ONE Stop: 05/16/19 14:06 Last Admin: 05/16/19 15:21 Dose: 30 ml Fentanyl (Sublimaze) 50 mcg IVPUSH ONETIME ONE Stop: 05/15/19 19:05 Last Admin: 05/15/19 19:34 Dose: 50 mcg Hydromorphone HCl (Dilaudid) 1 mg IVPUSH ONETIME ONE Stop: 05/15/19 15:47 Last Admin: 05/15/19 15:50 Dose: 1 mg Iopamidol (Isovue-300 (61%)) 100 ml IVPUSH ONETIME ONE Stop: 05/16/19 14:06 Last Admin: 05/16/19 15:21 Dose: 100 ml Ondansetron HCl (Zofran) 4 mg IVPUSH Q6H PRN PRN Reason: Nausea/Vomiting Last Admin: 05/15/19 16:27 Dose: 4 mg Pantoprazole Sodium (Protonix Iv) 40 mg IVPUSH Q12H [facility] Last Admin: 05/15/19 16:27 Dose: 40 mg Pantoprazole Sodium (Protonix Iv) 40 mg IVPUSH Q12H [facility] - Exam General: Alert, Oriented HEENT: Pupils Equal, Pupils Reactive, EOMI, Mucous Membr. Moist/[place] Neck: Supple Lungs: Clear to Auscultation, Normal Respiratory Effort Cardiovascular: Regular Rate, Regular Rhythm GI/Abdominal Exam: Soft, Non-Tender Back Exam: Normal Inspection, Full Range of Motion Extremities: Normal Inspection, Normal Range of Motion, Non-Tender, No Pedal Edema, Normal Capillary Refill Skin: Warm, Dry, Intact Neurological: No New Focal Deficit Psy/Mental Status: Alert, Normal Affect, Normal Mood - Problem List & Annotations (1) Abdominal pain SNOMED Code(s): 10290274 Code(s): R10.9 - UNSPECIFIED ABDOMINAL PAIN Status: Acute Priority: High Current Visit: No Onset Date: ~05/09/19 Qualifiers: Abdominal location: left upper quadrant Qualified Code(s): R10.12 - Left upper quadrant pain Annotation/Comment:: See plan below. (2) Colitis SNOMED Code(s): 44722225 Code(s): K52.9 - NONINFECTIVE GASTROENTERITIS AND COLITIS, UNSPECIFIED Status: Acute Priority: High Current Visit: No Onset Date: 05/11/19 Annotation/Comment:: See plan below. (3) Mesenteric adenitis SNOMED Code(s): 37352034 Code(s): I88.0 - NONSPECIFIC MESENTERIC LYMPHADENITIS Status: Acute Current Visit: No Annotation/Comment:: Patient feeling better much less. Active started on diet today if tolerates diet I will send her home her white count is within normal limits - Problem List Review Problem List Initiated/Reviewed/Updated: Yes - My Orders Last 24 Hours: My Active Orders 05/16/19 14:02 Abdomen Pelvis w Cont [CT] Routine 05/16/19 16:00 sulfaSALAzine 500 mg PO QID 05/17/19 Lunch Advance Diet Instructions [DIET] Clear Liquid Diet [DIET] 05/18/19 05:11 CBC WITH AUTO DIFF [HEME] AM COMPREHENSIVE METABOLIC PN,CMP [CHEM] DAILY 05/19/19 05:11 CBC WITH AUTO DIFF [HEME] AM COMPREHENSIVE METABOLIC PN,CMP [CHEM] DAILY 05/20/19 05:11 CBC WITH AUTO DIFF [HEME] AM COMPREHENSIVE METABOLIC PN,CMP [CHEM] DAILY - Plan Plan:: Patient was seen today. Pain is improving. Pain is still 6-7 out of 10. At this time, I discussed with her care plan and explained to her the need for completing treatment which was the cause of her return admission. Patient feeling better overall One day of IV antibiotics And probably send her home tomorrow
[2019-05-17] MEDS ORDERED: Promethazine 25 MG/ML SDV IM STA (18:04)
[2019-05-18] MEDS: Atropine/Diphenoxylate 0.025-2.5 MG Tab PO SCH ×4 (00:06→15:52)
[2019-05-18] MEDS: metroNIDAZOLE/Normal Saline 500 MG in Premix Bag 1 BAG IV SCH ×3 (00:06→15:52)
[2019-05-18] MEDS: Sodium Chloride 0.9% 1,000 ML IV SCH ×2 (04:23→13:34)
[2019-05-18] MEDS: Ondansetron 4 MG/2 ML SDV IVPUSH PRN (07:17)
[2019-05-18] MEDS: Sodium Chloride 0.9% 10 ML Syringe FLUSH PRN ×2 (07:18→08:15)
[2019-05-18 08:05] LABS: CHLORIDE,CL 100 mmol/L (98-107); SODIUM,NA 140 mmol/L (136-145)
[2019-05-18] MEDS: sulfaSALAzine 500 MG Tab PO SCH (08:14)
[2019-05-18] MEDS: Ciprofloxacin in D5W 400 MG in Premix Bag 1 BAG IV SCH ×2 (08:14)
[2019-05-18] MEDS: Pantoprazole 40 MG Vial IVPUSH SCH (08:14)
[2019-05-18] MEDS ORDERED: Promethazine 12.5 MG in Sodium Chloride 0.9% 100 ML IV ONE (09:01)
[2019-05-18] MEDS ORDERED: Promethazine 25 MG/ML SDV IM ONE (09:30)
--- NOTE | 2019-05-18 16:29 | PCM.DCSUM1 ---
Discharge Summary - Hospital Course Free Text/Narrative:: Patient was readmitted after leaving [facility] for colitis, unspecified. Patient admitted and given antibiotics and support of care. Patient responded to treatment well. Will discharge home. Plan is for patient to see her primary in [place], [place] for follow up of treatment plan. Patient will be sent home on antibiotics. Diagnosis: Stroke: No - Discharge Data Discharge Date: 05/18/19 Discharge Disposition: Home, Self-Care 01 Condition: Good - Discharge Diagnosis/Problem(s) (1) Abdominal pain SNOMED Code(s): 37224097 ICD Code: R10.9 - UNSPECIFIED ABDOMINAL PAIN Status: Resolved Priority: High Current Visit: No Onset Date: ~05/09/19 Problem Details: No further complaints of abdominal pain. Qualifiers: Abdominal location: left upper quadrant Qualified Code(s): R10.12 - Left upper quadrant pain (2) Colitis SNOMED Code(s): 87194278 ICD Code: K52.9 - NONINFECTIVE GASTROENTERITIS AND COLITIS, UNSPECIFIED Status: Acute Priority: High Current Visit: No Onset Date: 05/11/19 Problem Details: Will continue outpatient antibiotics upon DC (3) Mesenteric adenitis SNOMED Code(s): 13201840 ICD Code: I88.0 - NONSPECIFIC MESENTERIC LYMPHADENITIS Status: Acute Current Visit: No Problem Details: WBC is within normal limits. Tolerating diet. - Patient Instructions Diet: Regular Diet as Tolerated Activity: As Tolerated Driving: May Drive Today Showering/Bathing: May Shower - Discharge Plan *PRESCRIPTION DRUG MONITORING PROGRAM REVIEWED*: No *COPY OF PRESCRIPTION DRUG MONITORING REPORT IN PATIENT TRNUG: No Prescriptions/Med Rec: Ciprofloxacin HCl [Cipro] 500 mg PO BID #14 tablet metroNIDAZOLE [Flagyl] 500 mg PO TID #21 tablet Ondansetron [Zofran ODT] 4 mg PO Q6H PRN #20 tab.dis PRN Reason: nausea Home Medications: Home Meds Non-Formulary Medication [NF Drug] 1 tab PO DAILY 05/11/19 [History] Acetaminophen [Tylenol Extra Strength] 1,000 mg PO Q6HR PRN 05/15/19 [History] Ciprofloxacin HCl [Cipro] 500 mg PO BID #14 tablet 05/18/19 [Rx] Ondansetron [Zofran ODT] 4 mg PO Q6H PRN #20 tab.dis 05/18/19 [Rx] metroNIDAZOLE [Flagyl] 500 mg PO TID #21 tablet 05/18/19 [Rx] Oxygen Therapy Mode: Room Air Forms: ED Department Discharge Referrals: Lisa Pat [Other] ([facility] [address] [place] [address] Phone#- [phone] Please fax hospitalization notes to provider including CT scans. ) - Discharge Summary/Plan Comment DC Time >30 min.: No - General Info Date of Service: 05/18/19 - Review of Systems General: Reports: No Symptoms HEENT: Reports: No Symptoms Pulmonary: Reports: No Symptoms Cardiovascular: Reports: No Symptoms Gastrointestinal: Reports: Diarrhea (small diarrhea). Denies: Abdominal Pain, Constipation Genitourinary: Reports: No Symptoms Musculoskeletal: Reports: No Symptoms Skin: Reports: No Symptoms Neurological: Reports: No Symptoms Psychiatric: Reports: No Symptoms - Patient Data Vitals - Most Recent: Last Vital Signs Temp 98.6 F 05/18/19 15:59 Pulse 76 05/18/19 15:59 Resp 16 05/18/19 15:59 BP 108/70 05/18/19 15:59 Pulse Ox 99 05/18/19 15:59 Weight - Most Recent: 130 lb 3.2 oz I&O - Last 24 hours: Intake & Output 05/18/19 05/18/19 05/18/19 06:59 14:59 22:59 Intake Total 200 500 100 Output Total 300 1100 600 Balance -100 -600 -500 Lab Results - Last 24 hrs: Laboratory Results - last 24 hr 05/18/19 05/18/19 Range/Units 07:34 07:34 WBC 9.7 (4.0-10.2) K/uL RBC 4.52 (3.77-5.09) M/uL Hgb 13.7 (11.7-15.5) g/dL Hct 39.8 (34.0-46.0) % MCV 88.1 (84.0-98.0) fL MCH 30.3 (28.2-33.3) pg MCHC 34.4 (31.7-36.0) g/dL RDW 12.7 (11.2-14.1) % Plt Count 252 (150-350) K/uL Neut % (Auto) 60.0 (45.0-80.0) % Lymph % (Auto) 22.9 (10.0-50.0) % [place] % (Auto) 13.3 (2.0-14.0) % Eos % (Auto) 3.6 (0.0-5.0) % Baso % (Auto) 0.2 (0.0-2.0) % Neut # (Auto) 5.82 (1.40-7.00) K/uL Lymph # (Auto) 2.22 (0.50-3.50) K/uL [place] # (Auto) 1.29 H (0.00-1.00) K/uL Eos # (Auto) 0.35 (0.00-0.50) K/uL Baso # (Auto) 0.02 (0.00-0.20) K/uL Sodium 140 (136-145) mmol/L Potassium 3.4 L (3.5-5.1) mmol/L Chloride 100 (98-107) mmol/L Carbon Dioxide 26.3 (21.0-32.0) mmol/L BUN 2 L (7-18) mg/dL Creatinine 0.77 (0.51-1.17) mg/dL Est Cr Clr Drug Dosing 96.37 mL/min Estimated GFR (MDRD) > 60 mL/min Glucose 84 (74-106) mg/dL Calcium 8.1 L (8.5-10.1) mg/dL Total Bilirubin 0.3 (0.2-1.0) mg/dL AST 203 H (15-37) U/L ALT 179 H (12-78) U/L Alkaline Phosphatase 50 (46-116) IU/L Total Protein 5.7 L (6.4-8.2) g/dL Albumin 3.0 L (3.4-5.0) g/dL Med Orders - Current: Current Medications Diphenoxylate HCl/Atropine (Lomotil 0.025-2.5 Mg) 1 tab PO Q6HR [facility] Last Admin: 05/18/19 15:52 Dose: 1 tab Fentanyl (Sublimaze) 50 mcg IVPUSH Q4H PRN PRN Reason: Pain Last Admin: 05/17/19 17:38 Dose: 50 mcg Sodium Chloride (Normal Saline) 1,000 mls @ 150 mls/hr IV ASDIRECTED [facility] Last Admin: 05/18/19 13:34 Dose: 150 mls/hr Ciprofloxacin/Dextrose 400 mg/ (Premix) 200 mls @ 200 mls/hr IV Q12HR [facility] Last Admin: 05/18/19 08:14 Dose: 200 mls/hr Metronidazole 500 mg/ Premix 100 mls @ 100 mls/hr IV Q8H [facility] Last Admin: 05/18/19 15:52 Dose: 100 mls/hr Ondansetron HCl (Zofran) 4 mg IVPUSH Q6H PRN PRN Reason: Nausea/Vomiting Last Admin: 05/18/19 07:17 Dose: 4 mg Ondansetron HCl (Zofran) 8 mg IVPUSH Q6H PRN PRN Reason: Nausea/Vomiting Last Admin: 05/17/19 16:36 Dose: 8 mg Pantoprazole Sodium (Protonix Iv) 40 mg IVPUSH Q12H [facility] Last Admin: 05/18/19 08:14 Dose: 40 mg Sodium Chloride (Saline Flush) 10 ml FLUSH ASDIRECTED PRN PRN Reason: Keep Vein Open Last Admin: 05/18/19 08:15 Dose: 10 ml Discontinued Medications Diatrizoate Meglum/Diatrizoate Sod (Gastrografin 37%) 30 ml PO ONETIME ONE Stop: 05/16/19 14:06 Last Admin: 05/16/19 15:21 Dose: 30 ml Fentanyl (Sublimaze) 50 mcg IVPUSH ONETIME ONE Stop: 05/15/19 19:05 Last Admin: 05/15/19 19:34 Dose: 50 mcg Hydromorphone HCl (Dilaudid) 1 mg IVPUSH ONETIME ONE Stop: 05/15/19 15:47 Last Admin: 05/15/19 15:50 Dose: 1 mg Promethazine HCl 12.5 mg/ (Sodium Chloride) 100.5 mls @ 400 mls/hr IV ONETIME ONE Stop: 05/18/19 09:16 Last Admin: 05/18/19 09:54 Dose: Not Given Iopamidol (Isovue-300 (61%)) 100 ml IVPUSH ONETIME ONE Stop: 05/16/19 14:06 Last Admin: 05/16/19 15:21 Dose: 100 ml Ondansetron HCl (Zofran) 4 mg IVPUSH Q6H PRN PRN Reason: Nausea/Vomiting Last Admin: 05/15/19 16:27 Dose: 4 mg Pantoprazole Sodium (Protonix Iv) 40 mg IVPUSH Q12H [facility] Last Admin: 05/15/19 16:27 Dose: 40 mg Pantoprazole Sodium (Protonix Iv) 40 mg IVPUSH Q12H LEILANI Promethazine HCl (Phenergan) 25 mg IM ONETIME STA Stop: 05/17/19 18:05 Last Admin: 05/17/19 18:18 Dose: 25 mg Promethazine HCl (Phenergan) 12.5 mg IM ONETIME ONE Stop: 05/18/19 09:31 Last Admin: 05/18/19 09:34 Dose: 12.5 mg Sulfasalazine (Sulfasalazine) 500 mg PO QID LEILANI Last Admin: 05/18/19 08:14 Dose: 500 mg - Exam General: Reports: Alert, Oriented HEENT: Reports: Pupils Equal, Pupils Reactive, EOMI, Mucous Membr. Moist/[place]: Reports: Supple Lungs: Reports: Clear to Auscultation, Normal Respiratory Effort Cardiovascular: Reports: Regular Rate, Regular Rhythm GI/Abdominal Exam: Normal Bowel Sounds, Soft, Non-Tender, No Organomegaly, No Distention, No Abnormal Bruit, No Mass, Pelvis Stable Back Exam: Reports: Normal Inspection, Full Range of Motion Extremities: Normal Inspection, Normal Range of Motion, Non-Tender, No Pedal Edema, Normal Capillary Refill Skin: Reports: Warm, Dry, Intact Neurological: Reports: No New Focal Deficit Psy/Mental Status: Reports: Alert, Normal Affect, Normal Mood
== END 2019-05-18 17:05 | disposition home or self-care (01) | DRG 249 ==
LOC: LL.ED 15:00 → LL.MS 16:30
PROVIDERS: ADMIT Family Medicine; ATTEND Family Medicine
DX: K52.9 Noninfective gastroenteritis and colitis, unspecified (principal); I88.0 Nonspecific mesenteric lymphadenitis; H54.7 Unspecified visual loss; J45.909 Unspecified asthma, uncomplicated; F17.210 Nicotine dependence, cigarettes, uncomplicated; K21.9 Gastro-esophageal reflux disease without esophagitis; M19.90 Unspecified osteoarthritis, unspecified site; G89.29 Other chronic pain; M54.9 Dorsalgia, unspecified; G43.909 Migraine, unspecified, not intractable, without status migrainosus; F32.9 Major depressive disorder, single episode, unspecified; F41.9 Anxiety disorder, unspecified; Z98.890 Other specified postprocedural states; Z79.899 Other long term (current) drug therapy; Z88.1 Allergy status to other antibiotic agents
CPT/HCPCS: 36415; 74177; 80053; 83605; 85025; 87493; 96361; 96374; 96375; 99284-25; A9270-GY; C9113; J0744; J1170; J2405; J2550; J3010; J3490; J7030; Q9963; Q9967